=== PATIENT | female | born 2005 | race Caucasian/White ===

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

== ENCOUNTER 2024-01-21 17:43 | Emergency (ER) | payer OTHER, SELFPAY ==
[2024-01-21 17:53] VITALS: BP 134/91; PULSE 102; RESP 18; TEMP 37; O2SAT 98
--- NOTE | 2024-01-21 18:43 | ED.URI ---
HPI - URI/Sore Throat General Chief Complaint: Upper Respiratory Infection Stated Complaint: sore throat / SOB / Headache Time Seen by Provider: 01/21/24 18:33 Source: patient and RN notes reviewed Mode of arrival: ambulatory Limitations: no limitations History of Present Illness HPI Narrative: Patient presents today with a 2 day history of sore throat, cough, headache, shortness of breath with exertion. Denies fever. States she has been also exposed to COVID-19. History of asthma. She has been using her albuterol inhaler up to 3 times a day, which does provide some relief. She has also been using Sudafed which has not been helping. Related Data Home Medications Medication Instructions Recorded Confirmed buspirone 10 mg tablet mg 01/21/24 dextroamphetamine-amphetamine ER PO 01/21/24 10 mg 24hr capsule,extend release ferrous sulfate 324 mg (65 mg mg PO 01/21/24 iron) tablet,delayed release venlafaxine 75 mg capsule,extended 150 mg PO 01/21/24 release 24 hr Allergies Allergy/AdvReac Type Severity Reaction Status Date / Time No Known Allergies Allergy Verified 01/21/24 18:10 Review of Systems Review of Systems: CONSTITUTIONAL: Denies body aches, fever, chills, or sweats. EYES: Denies visual changes, redness, or discharge. ENT: Denies rhinorrhea, congestion, or otalgia.+ sore throat CARDIOVASCULAR: Denies chest pain, palpitations, or edema. RESPIRATORY: + cough, shortness of breath GASTROINTESTINAL: Denies abdominal pain, nausea, vomiting, or diarrhea. GENITOURINARY: Denies dysuria or hematuria. SKIN: Denies rash, itching, or wounds. MUSCULOSKELETAL: Denies back pain, joint pain, or myalgia. NEUROLOGIC: Denies headache, numbness, tingling, or weakness. PSYCH: Denies depression or anxiety. [facility] Past Medical History Medical History Asthma Surgical History Surgical History Marsing teeth extracted Social History Social History Smoking status: Never smoker Alcohol intake: never Substance use: never Lack of Transportation: No Lack of Food: Never True Current Housing: I Have Housing Concerned About Future Housing: No Difficulty Paying Gas/Electric Bills: No Difficulty Paying for Meds: No Currently Unemployed: No Education: High School Diploma/GED Difficulty w/ Childcare or Family Care: No Living arrangements: with family Occupation/Education: student Gender identity (if verbalized by the patient): Female Sexual Orientation (if Verbalized by the Patient): Straight or Heterosexual Spiritual care concerns: No Comments At time of signature, I have reviewed and agree with nursing past medical, surgical, social and family history unless otherwise noted. Please see nursing chart for further information. There is no relevant family history pertinent to the presenting complaint Exam Narrative: GENERAL: Well-appearing, well-nourished, and in no acute distress. HEAD: Normocephalic, atraumatic. EYES: EOMI. No redness or drainage. Conjunctivae normal. ENT: Mucous membranes pink and moist. Nares clear. No rhinorrhea. TMs normal bilaterally. Throat normal. Uvula midline. NECK: Normal AROM. Supple. No lymphadenopathy. CHEST: No respiratory distress. Clear to auscultation. HEART: Regular rate and rhythm. No murmur appreciated. EXTREMITIES: Normal range of motion. No edema. SKIN: Warm, dry, no rash. Capillary refill normal. Normal skin turgor. NEURO: No focal deficits. Alert and oriented x3. Gait steady. PSYCH: Normal affect. No signs of depression or anxiety. Course Course Level of Care: Express Care Visit Vital Signs Vital signs: Vital Signs Temperature 98.6 F 01/21/24 17:53 Pulse Rate 102 H 01/21/24 17:53 Respiratory Rate 18 01/21/24 17:53 Blood Pressu
[2024-01-21 18:59] LABS: EDCOVIDSCREEN Negative (Negative); EDINFLUASCREEN Negative (Negative); EDINFLUBSCREEN Negative (Negative)
[2024-01-21 18:59] LABS: EDSTREPNEGPOS1 Negative (Negative)
== END 2024-01-21 18:53 | disposition home or self-care (01) ==
PROVIDERS: Emergency Provider Nurse Practitioner; PCP Student in an Organized Health Care Education/Training Program
DX: J06.9 Acute upper respiratory infection, unspecified (principal); J45.901 Unspecified asthma with (acute) exacerbation; Z20.822 Contact with and (suspected) exposure to COVID-19
CPT/HCPCS: 87081; 87426; 87804; 87880; 99213; G0463

== ENCOUNTER 2024-05-24 13:48 | Emergency (ER) | payer OTHER, SELFPAY ==
--- OUTSIDE RECORDS SUMMARY | 2024-05-24 13:50 | XMS_ITS | Clinical Summary ---
Author Organization [facility] Address [address] [place] [address]. [place] [address] [place] [address] Care Team Providers Care Leadership Coach Name Role Phone Sherrell Myles MD Primary Care Provider + Allergies No known active allergies Medications ELURYNG 0.12-0.015 MG/24HR RING INSERT ONE RING VAGINALLY AND LEAVE IN PLACE FOR 3 CONSECUTIVE WEEKS, THEN REMOVE FOR 1 WEEK. INSERT NEW RING 7 DAYS AFTER THE LAST WAS REMOVED 3 Active ferrous sulfate EC 324 (65 Fe) MG tabletIndications :Low serum iron Take one tablet 4 times per week 90 tablet 1 4 Active clindamycin (CLEOCIN T) 1 % gelIndications:Ac ne, unspecified acne type Apply topically 2 (two) times daily. 30 g 4 Active busPIRone (BUSPAR) 10 MG tabletIndications :Anxiety Take 1 tablet (10 mg total) by mouth 2 (two) times daily. 180 tablet 4 025 Active albuterol sulfate HFA 108 (90 Base) MCG/ACT inhalerIndication s:Mild intermittent asthma without complication (HHS/HCC) Inhale 2 puffs into the lungs every 4 (four) hours as needed for Wheezing. 18 g 4 Active amphetamine-dextr oamphetamine XR (ADDERALL XR) 10 MG 24 hr capsuleIndication s:Attention deficit hyperactivity disorder (ADHD), combined type Take 1 capsule (10 mg total) by mouth every morning. 30 capsule 4 Active venlafaxine XR (EFFEXOR-XR) 75 MG 24 hr capsuleIndication s:Anxiety,Moderat e major depression ([facility]) Take 1 capsule (75 mg total) by mouth daily. 90 capsule 1 4 025 Active Active Problems Problem Noted Date Diagnosed Date Irritable bowel syndrome with constipation 01/13 Anemia 07/25/2022 Attention deficit hyperactiv ity disorder (ADHD), combined type 05/21/2022 Overview (03/10/2024): Taking adderall. Struggling with focus and time management. Has been taking medication for about 6 months. During last visit increased adderall but noted tachycardia after starting it. She is wondering if she can try some supplements to help manage attention. Assessment & Plan (03/10/2024 9:11 AM TAILOR MEN'S READY TO WEAR): Chronic. Not currently appropriately managed and she is having side effects from medication. Will reduce her Adderall back to 10 mg daily. She is interested in trying some supplements we discussed how best to approach this. Encouraged her to monitor screen time closely as well. Assessment & Plan (01/14/2024 10:49 AM CDT): Not controlled. Will trial Adderall extended release 20 mg daily. UDS up-to-date August 2023. I indicated I preferred she not combine with marijuana. She is agreeable to this. Contract signed. Anxiety 05/21/2022 Moderate episode of recurren t major depressive disorder ([facility]) 05/21/2022 Overview (03/10/2024): Patient reports she has been taking venlafaxine 150 mg since December when her dose was reduced. She continues to note well manage symptoms. She would like to reduce further. Assessment & Plan (03/10/2024 9:12 AM TAILOR MEN'S READY TO WEAR): Chronic and controlled. Trial reduction in venlafaxine to 75 mg daily. Assessment & Plan (01/14/2024 10:50 AM CDT): Trial reduction in venlafaxine. Recommend reducing to 150 mg daily. Acne vulgaris 07/06/2017 Overview (06/08/2022): Onset age 8; minimal use of clindamycin and tretinoin (<6g/mo) and MCN x3mo 07/06/17 moderate-severe with scarring; Rx Sailaja, tretinoin 0.05% cr, clinda lotion, BPO wash; consider isotretinoin Asthma ([facility]) 03/13/2009 Overview (01/14/2024): Reports intermittent wheezing. Worse when ill or in the winter. Assessment & Plan (01/14/2024 10:49 AM CDT): Mild intermittent. Continue albuterol as needed. Encounters Date Type Department Care Team Description 03/14/2024 10:00 AM TAILOR MEN'S READY TO WEAR Allied Health/Nurse Visit [address] [place] [id number] Sherrell Myles MD Imm/Inj (Patient presents for her 2nd HPV vaccine) 03/14/2024 Travel 03/10/2024 8:50 AM TA[employer] MEN'S [employer] TO WE[employer] Office Visit [address] [place] [id number] Sherrell Myles MD Tachycardia 03/10/2024 Travel from Last 3 Months Immunizations Name Administration Dates Next Due [id number] (Pediarix) 04/27/2004,02/26/2004 DTaP-IPV (Kinrix) 11/05/2008 Dtap (Generic) 02/06/2005,2003 Fluzone 6 Months+ Quad (0.5 mL Prefilled Syringe) 01/24/2023,04/17/2022 HPV GARDASIL 9-VALENT 03/14/2024,01/14/2024 Hepatitis A (Havrix [address]) 10/29/2006, 006 Hepatitis B Pediatric 2003,2003 Hib (Generic) 02/06/2005, 4,02/26/2004,04/2003 Influenza (Generic) 03/06/2011, 0,02/10/2008,12/2006,04/06/2006 Influenza Adult (Generic) 03/17/2020,,03/01/2018,01/28,03/31/2016,04/27/2015,02/14/20 14,02/14/2013 MENINGOCOCCAL A C Y&W-135 oligosaccharide (MENVEO) 11/13/2014 MMR (MMRII) 11/25/2007,11/14/2004 Meningcoccal Group B (Bexser o)(aka Meningitis) 12/22/2020,11/09/2020 Meningococcal (Menactra) 03/17/2020 Pneumococcal (Pneumovax 23) 03/14/2023 Pneumococcal (Prevnar 7) 02/06/2005,03/31,02/26/2004,04/2003 Polio IPV (Ipol) 2003 Tdap (Adacel) 01/14/2024 Tdap (Generic) 12/12/2013 Varicella (Varivax) 11/25/2007,11/14/2004 Family History Medical History Relation Comments No Known Problems Father Mental Health Maternal Grandmother Depression Mother Mental Health Mother Miscarriages / Stillbirths Mother Cancer Paternal Aunt Alcohol Abuse Paternal Grandfather Stroke Paternal Grandfather Alcohol Abuse Paternal Grandmother Drug Abuse Paternal Uncle Mental Health Sister Relation Status Comments Father Alive Maternal Grandmother Mother Alive Paternal Aunt Paternal Grandfather Paternal Grandmother Paternal Uncle Sister Social History Tobacco Use Types Packs/Day Years Used Date Smoking Tobacco: Never Passive Smoke Exposure: Never Smokeless Tobacco: Never Tobacco Cessation:Counseling Given: No Comments:Counseled by Dr Dacosta Alcohol Use Standard Drinks/Week Comments Never 0 (1 standard drink = 0.6 oz pur e alcohol) AUDIT-C Answer Date Recorded Q1: How often do you have a drink containing alcohol? Never 09/12/2023 Q2: How many drinks containi ng alcohol do you have on a typical day when you are drinking? Patient does not drink Q3: How often do you have si x or more drinks on one occasion? Never 09/12/2023 PHQ-2 Answer Date Recorded Patient Health Questionnaire-2 Score 4 01/14/2024 Comments No Sex and Gender Information Value Date Recorded Sex Assigned at Not on file Legal Sex Female 4:15 PM [employer] Gender Identity Female 03/14/2022 5:57 AM [employer] WE[employer] Sexual Orientation Straight 03/14/2022 5: 57 AM [employer] WEAR Last Filed Vital Signs Vital Sign Reading Time Taken Comments Blood Pressure 124/86 03/10/2024 9:10 AM [employer] Pulse 86 03/10/2024 9:10 AM [employer] Temperature 37.1 ??C (98.8 ??F) 03/10/2024 9:10 AM CS T Respiratory Rate 16 03/10/2024 9:10 AM [employer] WE[employer] Oxygen Saturation 98% 03/10/2024 9:10 AM [employer] WE[employer] Inhaled Oxygen Concentration - - Weight 75.3 kg (166 lb) 03/10/2024 9:10 AM [employer] Height 160 cm (5' 3 ) 03/10/2024 9:10 AM [employer] WE[employer] Body Mass Index 29.41 03/10/2024 9:10 AM [employer] WE[employer] Plan of Treatment Upcoming Encounters Date Type Department Care Team (Late st Contact Info) Description 07/14/2024 8:10 AM CDT Office Visit [facility] Family Medicine - [place] [address] [facility] [address] [place] [address] [id number] Sherrell Myles MD [address] [place] [id number] Health Maintenance Due Date Last Done Comments Chlamydia Screening Females ages 16-24 2019 COVID-19 Vaccine ( season) 2023 12/15/2020, 11/24/2020 Influenza Adult (#1) 2024 01/24/2023, 04/17/2022, 03/17/2020, Additional history exists Pneumococcal Vaccine: Pediatrics (0 to 5 Years) and At-Risk Patients (6 to 64 Years) (2 of 2 - PCV) 03/14/2024 03/14/2023, 02/06/2005, 04/27/2004, Additional history exists HPV Vaccines (3 - 3-dose series) 07/13/2024 03/14/2024, 01/14/2024 Annual Physical 09/11/2024 09/12/2023, 05/18/2022 PHQ-2 (Physician [place]) 01/13/2025 01/14/2024 DTaP, Tdap and Td Vaccines (8 - Td or Tdap) 01/13/2034 01/14/2024, 12/12/2013, 11/05/2008, Additional history exists Hepatitis B Vaccines Completed 04/27/2004, 02/26/2004, 2003, Additional history exists Meningococcal Vaccine Completed 03/17/2020, 015 Meningococcal B Vaccine Completed 12/22/2020, 11/09 Hepatitis C Completed 09/12/2023 RSV Immunizations Under 20 Months Aged Out No longer eligible based on patient's age to complete this topic Procedures Procedure Name Priority Date/Time Associated Diagnosis Comments HEPATITIS C ANTIBODY Routine 09/12/2023 3:01 PM CDT Encounter for hepatitis C screening test for low risk patient from Last 3 Months or Most Recently Relevant to Health Maintenance Results * HEPATITIS C ANTIBODY ([facility] ONLY) (09/12/2023 3:01 PM CDT) HEPATITIS C AB NON-REACTI VE NON-REACT ANAIS 09/12/2023 10:00 PM CDT [facility] Comment: ANTIBODIES TO HCV NOT DETECTED. DOES NOT EXCLUDE THE POSSIBILITY OF EXPOSURE TO HCV. 09/12/2023 3:01 PM CDT Carmen Dacosta MD LABORATORY Final Result [facility] [address] [place] [address], [id number] from Last 3 Months or Most Recently Relevant to Health Maintenance Insurance BE Care Teams Leadership Coach Relationship Specialty Start Date End Date Sherrell Myles MD [address] [facility] [place] [address] PCP - General FAMILY PRACTICE 01/11/24
--- OUTSIDE RECORDS SUMMARY | 2024-05-24 13:50 | XMS_ITS | Encounter Summary ---
Author Organization [facility] Address [address] [place] [address]. [place] [address] [place] [address] Care Team Providers Care Knockdown Worker Name Role Phone Carmen Dacosta MD Primary Care Provider [phone] Sherrell Myles MD Primary Care Provider + Encounter Details Date Type Department Care Team (Late st Contact Info) Description 03/19/2023 MyChart Message Enc [facility] Multispecialty Care - [place] [address] [address] [place], [place] [phone] Carmen Dacosta MD [address] [place] [address] [address] [place], [place] [id number] Adderall Social History Tobacco Use Types Packs/Day Years Used Date Smoking Tobacco: Never Passive Smoke Exposure: Never Smokeless Tobacco: Never Comments:Counseled by Dr Francoise benson Alcohol Use Standard Drinks/Week Comments Never 0 (1 standard drink = 0.6 oz pur e alcohol) PHQ-2 Answer Date Recorded Patient Health Questionnaire-2 Score 2 03/14/2023 Comments No Sex and Gender Information Value Date Recorded Sex Assigned at Not on file Legal Sex Female 4:15 PM FELLING BUCKING SUPERVISOR Gender Identity Female 03/14/2022 5:57 AM FELLING BUCKING SUPERVISOR Sexual Orientation Straight 03/14/2022 5: 57 AM FELLING BUCKING SUPERVISOR documented as of this encounter Plan of Treatment Upcoming Encounters Date Type Department Care Team (Late st Contact Info) Description 07/14/2024 8:10 AM CDT Office Visit [facility] Family Medicine - [place] [address] [place] [address] Sherrell yMles MD [address] [place], [place] [phone] documented as of this encounter Visit Diagnoses Not on filedocumented in this encounter Additional Health Concerns Assessment Noted Time PHQ-9 Depression Total Score: 9 03/14/20 2:20 PM FELLING BUCKING SUPERVISOR documented as of this encounter Care Teams Knockdown Worker Relationship Specialty Start Date End Date Carmen Dacosta MD [address] [facility] [address] [place] [address] PCP - General INTERNAL MEDICINE 10/02/22 01/10/24 Sherrell Myles MD [address] [facility] [address] [place], [place] [address] PCP - General FAMILY PRACTICE 01/11/24 documented as of this encounter
--- OUTSIDE RECORDS SUMMARY | 2024-05-24 13:50 | XMS_ITS | Encounter Summary ---
Author Organization [facility] Address [address] [place] [address]. [place] [address] [place] [address] Care Team Providers Care Vmware Architect Name Role Phone Cirilo Kurtz MD Primary Care Pr ovider [facility] Carmen Dacosta MD Primary Care Provider [phone] Sherrell Myles MD Primary Care Provider + Encounter Details Date Type Department Care Team (Late st Contact Info) Description 03/28/2022 MyChart Message Enc [facility] Medical [facility] Multispecialty Care - [address] [place] [address] Florence Moscoso NP [place] Social History Tobacco Use Types Packs/Day Years Used Date Smoking Tobacco: Never Smokeless Tobacco: Never Alcohol Use Standard Drinks/Week Comments Never 0 (1 standard drink = 0.6 oz pur e alcohol) PHQ-2 Answer Date Recorded PHQ-2 Score - If the patient scores above 3, please move on to questions 3-9 1 03/15/2022 Comments No Sex and Gender Information Value Date Recorded Sex Assigned at Not on file Legal Sex Female 4:15 PM INVESTMENT PROFESSIONAL Gender Identity Female 03/14/2022 5:57 AM INVESTMENT PROFESSIONAL Sexual Orientation Straight 03/14/2022 5: 57 AM INVESTMENT PROFESSIONAL COVID-19 Exposure Response Date Recorded In the last 10 days, have yo u been in contact with someone who was confirmed or suspected to have Coronavirus/COVID-19? No / Unsure 03/24/2022 10:48 AM INVESTMENT PROFESSIONAL documented as of this encounter Plan of Treatment Upcoming Encounters Date Type Department Care Team (Late st Contact Info) Description 07/14/2024 8:10 AM CDT Office Visit [facility] Family Medicine - [place] [address] [place] [address] Sherrell Myles MD [address] [place] [address] documented as of this encounter Visit Diagnoses Not on filedocumented in this encounter Care Teams Vmware Architect Relationship Specialty Start Date End Date Cirilo Kurtz MD PCP - General FAMILY PRACTICE 03/15/22 10/01/22 Carmen Dacosta MD [address] [facility] [address] [place] [address] PCP - General INTERNAL MEDICINE 10/02/22 01/10/24 Sherrell Myles MD [address] [facility] [address] [place] [address] PCP - General FAMILY PRACTICE 01/11/24 documented as of this encounter
--- OUTSIDE RECORDS SUMMARY | 2024-05-24 13:50 | XMS_ITS | Encounter Summary ---
Author Organization [facility] Address [address] [place] [address]. [place] [address] [place] [address] Care Team Providers Care Director Of Tax Services Name Role Phone Carmen Dacosta MD Primary Care Provider [phone] Sherrell Myles MD Primary Care Provider + Encounter Details Date Type Department Care Team (Latest Contact Info) Description 02/26/2023 TellmeGent Message Enc [facility] Multispecialty Care - [place] [address] [address] [place] [address] Carmen Dacosta MD [address] [place] [address] [address] [place] [address] EEG and Heart Monitor Social History Tobacco Use Types Packs/Day Years Used Date Smoking Tobacco: Never Passive Smoke Exposure: Never Smokeless Tobacco: Never Comments:Counseled by Dr Francoise benson Alcohol Use Standard Drinks/Week Comments Never 0 (1 standard drink = 0.6 oz pur e alcohol) PHQ-2 Answer Date Recorded Patient Health Questionnaire-2 Score 1 02/20/2023 Comments No Sex and Gender Information Value Date Recorded Sex Assigned at Not on file Legal Sex Female 4:15 PM PHARMACY ORDER ENTRY TECHNICIAN Gender Identity Female 03/14/2022 5:57 AM PHARMACY ORDER ENTRY TECHNICIAN Sexual Orientation Straight 03/14/2022 5: 57 AM PHARMACY ORDER ENTRY TECHNICIAN documented as of this encounter Plan of Treatment Upcoming Encounters Date Type Department Care Team (Late st Contact Info) Description 07/14/2024 8:10 AM CDT Office Visit [facility] Family Medicine - [place] [address] [place] [address] Sherrell Myles MD [address] [place], [place] [id number] documented as of this encounter Visit Diagnoses Not on filedocumented in this encounter Additional Health Concerns Assessment Noted Time PHQ-9 Depression Total Score: 9 01/25/20 4:50 PM CDT documented as of this encounter Care Teams Director Of Tax Services Relationship Specialty Start Date End Date Carmen Dcaosta MD [address] [facility] [address] [place] [address] PCP - General INTERNAL MEDICINE 10/02/22 01/10/24 Sherrell Myles MD [address] [facility] [address] [place], [place] [address] PCP - General FAMILY PRACTICE 01/11/24 documented as of this encounter
--- OUTSIDE RECORDS SUMMARY | 2024-05-24 13:50 | XMS_ITS | Referral Summary ---
Author Organization [facility] Address [address] [place] [address] Care Team Providers Care Order Booker Name Role Phone Kermit Zavala MD Primary Care Provider Encounters Date Type Department Care Team Description 03/20/[address] [facility] [address] [facility] [address] [place] [phone] Laurie López RN 03/20/[address] [facility] [address] [facility] [address] [place] [phone] Laurie López RN 03/17/2024 9:35 AM NURSE EPIDEMIOLOGIST Lab [facility] [address] [place] [address] [address] [place] [address] Seasonal allergic rhinitis due to pollen 03/17/2024 8:00 AM NURSE EPIDEMIOLOGIST Office Visit [facility] [address] [facility] [address] [place] [address] Cynthia Mars MD Seasonal allergic rhinitis due to pollen (Primary Dx); Urticaria; Mild intermittent asthma without complication from Last 3 Months Allergies No known active allergies Medications tretinoin (RETIN-A) 0.05 % cream APPLY PEA SIZE AMOUNT TO FACE EVERY OTHER NIGHT FOR 1 TO 2 WEEKS AND THEN EVERY NIGHT AT BEDTIME 2 7 Active minocycline (MINOCIN,DYNACIN ) 100 mg capsule 0 7 Active clindamycin (CLEOCIN T) 1 % external solution Apply topically 2 (two) times a day. 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 INSERT NEW RING 7 DAYS AFTER THE LAST WAS REMOVED . APPOINTMENT REQUIRED FOR FUTURE REFILLS Active ferrous sulfate ER 324 mg (65 mg iron) EC tablet TAKE ONE TABLET BY MOUTH 4 TIMES A WEEK Active venlafaxine XR (EFFEXOR-XR) 75 mg 24 hr capsule Take 1 capsule (75 mg total) by mouth daily 4 09/07/19 25 Active budesonide-formo teroL (Symbicort) 160-4.5 mcg/actuation inhalerIndicatio ns:Mild intermittent asthma without complication Inhale 2 puffs 2 (two) times a day Rinse mouth with water after use. Do not swallow. Use with Spacer. Up to 12 doses in 24 hours. 1 each 4 Active inhalational spacing device (Aerochamber Plus Z Stat) spacerIndication s:Mild intermittent asthma without complication 1 Inhalation as needed (with inhaler) 1 each 3 4 Active mometasone (NASONEX) 50 mcg/actuation nasal sprayIndications :Allergic Rhinitis Administer 2 sprays into each nostril 2 (two) times a day 17 g 11 4 03/17/20 25 Active cetirizine (ZyrTEC) 10 mg tabletIndication s:Urticaria,Seas onal allergic rhinitis due to pollen Take 1 tablet (10 mg total) by mouth daily 90 tablet 3 4 Active Active Problems Problem Noted Date Diagnosed Date Acute streptococcal pharyngitis 05/24/2016 Overview (08/10/2016): Strep throat Acute suppurative otitis med ia without spontaneous rupture of ear drum 12/24/2015 Overview (08/10/2016): Acute suppurative otitis media of left ear without spontaneous rupture of tympanic membrane, recurrence not specified Social History Tobacco Use Types Packs/Day Years Used Date Smoking Tobacco: Never Smokeless Tobacco: Never Alcohol Use Standard Drinks/Week Comments No 0 (1 standard drink = 0.6 oz pur e alcohol) Comments Unknown Sex and Gender Information Value Date Recorded Sex Assigned at Not on file Legal Sex Female 5:52 AM NURSE EPIDEMIOLOGIST Gender Identity Not on file Sexual Orientation Not on file Last Filed Vital Signs Vital Sign Reading Time Taken Comments Blood Pressure 119/81 03/17/2024 8:13 AM NURSE EPIDEMIOLOGIST Pulse 86 03/17/2024 8:13 AM NURSE EPIDEMIOLOGIST Temperature 36.3 ??C (97.4 ??F) 03/17/2024 8:13 AM CS T Respiratory Rate 16 07/02/2017 7:16 PM NURSE EPIDEMIOLOGIST Oxygen Saturation 98% 03/17/2024 8:13 AM NURSE EPIDEMIOLOGIST Inhaled Oxygen Concentration - - Weight 74.8 kg (165 lb) 03/17/2024 8:13 AM NURSE EPIDEMIOLOGIST Height 160 cm (5' 3 ) 03/17/2024 8:13 AM NURSE EPIDEMIOLOGIST Body Mass Index 29.23 03/17/2024 8:13 AM NURSE EPIDEMIOLOGIST Plan of Treatment Not on file Procedures Procedure Name Priority Date/Time Associated Diagnosis Comments ALLERGEN RAT MIX (ANIMAL) IGE Routine 03/17/2024 9:32 AM NURSE EPIDEMIOLOGIST Seasonal allergic rhinitis due to pollen ALLERGEN MOUSE MIX (ANIMAL) IGE Routine 03/17/2024 9:32 AM NURSE EPIDEMIOLOGIST Seasonal allergic rhinitis due to pollen ALLERGEN EPITHELIA/DANDER DOG (ANIMAL) IGE Routine 03/17/2024 9:32 AM NURSE EPIDEMIOLOGIST Seasonal allergic rhinitis due to pollen ALLERGEN DERMATOPHAGOIDES PTERONYSSINUS (INSECT) IGE Routine 03/17/2024 9:32 AM NURSE EPIDEMIOLOGIST Seasonal allergic rhinitis due to pollen ALLERGEN DERMATOPHAGOIDES FARINAE (INSECT) IGE Routine 03/17/2024 9:32 AM NURSE EPIDEMIOLOGIST Seasonal allergic rhinitis due to pollen ALLERGEN COCKROACH ARMENIAN (INSECT) IGE Routine 03/17/2024 9:32 AM NURSE EPIDEMIOLOGIST Seasonal allergic rhinitis due to pollen ALLERGEN EPITHELIA/DANDER CAT (ANIMAL) IGE Routine 03/17/2024 9:32 AM NURSE EPIDEMIOLOGIST Seasonal allergic rhinitis due to pollen ALLERGEN PENICILLIUM CHRYSOGENUM (MOLD) IGE Routine 03/17/2024 9:32 AM NURSE EPIDEMIOLOGIST Seasonal allergic rhinitis due to pollen ALLERGEN CLADOSPORIUM HERBARUM (MOLD) IGE Routine 03/17/2024 9:32 AM NURSE EPIDEMIOLOGIST Seasonal allergic rhinitis due to pollen ALLERGEN ASPERGILLUS FUMIGATUS (MOLD) IGE Routine 03/17/2024 9:32 AM NURSE EPIDEMIOLOGIST Seasonal allergic rhinitis due to pollen ALLERGEN ALTERNARIA TENUIS (MOLD) IGE Routine 03/17/2024 9:32 AM NURSE EPIDEMIOLOGIST Seasonal allergic rhinitis due to pollen ALLERGEN NETTLE (WEED) IGE Routine 03/17/2024 9:32 AM NURSE EPIDEMIOLOGIST Seasonal allergic rhinitis due to pollen ALLERGEN RAGWEED SHORT/COMMON (WEED) IGE Routine 03/17/2024 9:32 AM NURSE EPIDEMIOLOGIST Seasonal allergic rhinitis due to pollen ALLERGEN PIGWEED ROUGH (WEED) IGE Routine 03/17/2024 9:32 AM NURSE EPIDEMIOLOGIST Seasonal allergic rhinitis due to pollen ALLERGEN PARRISH'S QUARTER (WEED) IGE Routine 03/17/2024 9:32 AM NURSE EPIDEMIOLOGIST Seasonal allergic rhinitis due to pollen ALLERGEN PLANTAIN HUNGARIAN (WEED) IGE Routine 03/17/2024 9:32 AM NURSE EPIDEMIOLOGIST Seasonal allergic rhinitis due to pollen ALLERGEN HANY GRASS (GRASS) IGE Routine 03/17/2024 9:32 AM NURSE EPIDEMIOLOGIST Seasonal allergic rhinitis due to pollen ALLERGEN CLIFTON GRASS (GRASS) IGE Routine 03/17/2024 9:32 AM NURSE EPIDEMIOLOGIST Seasonal allergic rhinitis due to pollen ALLERGEN BERMUDA GRASS (GRASS) IGE Routine 03/17/2024 9:32 AM NURSE EPIDEMIOLOGIST Seasonal allergic rhinitis due to pollen ALLERGEN WALNUT (TREE) IGE Routine 03/17/2024 9:32 AM NURSE EPIDEMIOLOGIST Seasonal allergic rhinitis due to pollen ALLERGEN SYCAMORE ARMENIAN (TREE) IGE Routine 03/17/2024 9:32 AM NURSE EPIDEMIOLOGIST Seasonal allergic rhinitis due to pollen ALLERGEN OAK RED (TREE) IGE Routine 03/17/2024 9:32 AM NURSE EPIDEMIOLOGIST Seasonal allergic rhinitis due to pollen ALLERGEN MULBERRY (TREE) IGE Routine 03/17/2024 9:32 AM NURSE EPIDEMIOLOGIST Seasonal allergic rhinitis due to pollen ALLERGEN MOUNTAIN JUNIPER (TREE) IGE Routine 03/17/2024 9:32 AM NURSE EPIDEMIOLOGIST Seasonal allergic rhinitis due to pollen ALLERGEN MAPLE/BOX ELDER (TREE) IGE Routine 03/17/2024 9:32 AM NURSE EPIDEMIOLOGIST Seasonal allergic rhinitis due to pollen ALLERGEN ELM (TREE) IGE Routine 03/17/20 9:32 AM NURSE EPIDEMIOLOGIST Seasonal allergic rhinitis due to pollen ALLERGEN BIRCH COMMON SILVER (TREE) IGE Routine 03/17/2024 9:32 AM NURSE EPIDEMIOLOGIST Seasonal allergic rhinitis due to pollen from Last 3 Months Results * Allergen Rat mix (animal) IgE (03/17/2024 9:32 AM NURSE EPIDEMIOLOGIST) Rat mix IgE <0.10 0.00 - 0.34 kUnits/L Blood 03/17/2024 9:32 AM NURSE EPIDEMIOLOGIST 03/17/2024 11:32 AM NURSE EPIDEMIOLOGIST Cynthia Mars MD LAB BLOOD ORDERABLES Fin al Result Performing Organization Address [facility] de Phone Number [facility] [place] [address] * Allergen Mouse mix (animal) IgE (03/17/2024 9:32 AM NURSE EPIDEMIOLOGIST) Mouse mix IgE <0.10 0.00 - 0.34 kUnits/L Blood 03/17/2024 9:32 AM NURSE EPIDEMIOLOGIST 03/17/2024 11:32 AM NURSE EPIDEMIOLOGIST Result [facility] Cynthia Mars MD LAB BLOOD ORDERABLES Fin al Result Performing Organization Address [facility] de Phone Number [facility] Department [place] [address] * Allergen Penicillium chrysogenum (mold) IgE (03/17/2024 9:32 AM NURSE EPIDEMIOLOGIST) Penicillium chrysogenum IgE <0.10 0.00 - 0.34 kUnits/L Blood 03/17/2024 9:32 AM NURSE EPIDEMIOLOGIST 03/17/2024 11:32 AM NURSE EPIDEMIOLOGIST Result [facility] Cynthia Mars MD LAB BLOOD ORDERABLES Fin al Result Performing Organization Address [facility] Co de Phone Number [facility] [place] [address] * Allergen Bee Branch (tree) IgE (03/17/2024 9:32 AM NURSE EPIDEMIOLOGIST) Bee Branch IgE <0.10 0.00 - 0.34 kUnits/L Blood 03/17/2024 9:32 AM NURSE EPIDEMIOLOGIST 03/17/2024 11:32 AM NURSE EPIDEMIOLOGIST Cynthia Mars MD LAB BLOOD ORDERABLES Fin al Result Performing Organization Address [facility] de Phone Number [facility] [place] [address] * Allergen Mountain juniper (tree) IgE (03/17/2024 9:32 AM NURSE EPIDEMIOLOGIST) Mountain juniper IgE <0.10 0.00 - 0.34 kUnits/L Blood 03/17/2024 9:32 AM NURSE EPIDEMIOLOGIST 03/17/2024 11:32 AM NURSE EPIDEMIOLOGIST Cynthia Mars MD LAB BLOOD ORDERABLES Fin al Result Performing Organization Address [facility] Phone Number [facility] [place] [address] * Allergen Bermuda grass (grass) IgE (03/17/2024 9:32 AM NURSE EPIDEMIOLOGIST) Bermuda grass IgE <0.10 0.00 - 0.34 kUnits/L Blood 03/17/2024 9:32 AM NURSE EPIDEMIOLOGIST 03/17/2024 11:32 AM NURSE EPIDEMIOLOGIST Cynthia Mars MD LAB BLOOD ORDERABLES Fin al Result Performing Organization Address [facility] de Phone Number [facility] [place] [address] * Allergen Plantain thai (weed) IgE (03/17/2024 9:32 AM NURSE EPIDEMIOLOGIST) Plantain thai IgE <0.10 0.00 - 0.34 kUnits/L Blood 03/17/2024 9:32 AM NURSE EPIDEMIOLOGIST 03/17/2024 11:32 AM NURSE EPIDEMIOLOGIST Cynthia Mars MD LAB BLOOD ORDERABLES Fin al Result Performing Organization Address [facility] Co de Phone Number [facility] [place] [address] * Allergen Elm (tree) IgE (03/17/2024 9:32 AM NURSE EPIDEMIOLOGIST) Elm IgE <0.10 0.00 - 0.34 kUnits/L Blood 03/17/2024 9:32 AM NURSE EPIDEMIOLOGIST 03/17/2024 11:32 AM NURSE EPIDEMIOLOGIST Cynthia Mars MD LAB BLOOD ORDERABLES Fin al Result Performing Organization Address [facility] de Phone Number [facility] [place] [address] * Allergen Cladosporium herbarum (mold) IgE (03/17/2024 9:32 AM NURSE EPIDEMIOLOGIST) Cladosporium herbarum IgE <0.10 0.00 - 0.34 kUnits/L Blood 03/17/2024 9:32 AM NURSE EPIDEMIOLOGIST 03/17/2024 11:32 AM NURSE EPIDEMIOLOGIST Cynthia Mars MD LAB BLOOD ORDERABLES Fin al Result Performing Organization Address [facility] Co de Phone Number [facility] Department [place] [address] * Allergen Birch common silver (tree) IgE (03/17/2024 9:32 AM NURSE EPIDEMIOLOGIST) Birch common silver IgE <0.10 0.00 - 0.34 kUnits/L Blood 03/17/2024 9:32 AM NURSE EPIDEMIOLOGIST 03/17/2024 11:32 AM NURSE EPIDEMIOLOGIST Cynthia Mars MD LAB BLOOD ORDERABLES Fin al Result Performing Organization Address [facility] Co de Phone Number [facility] [place] [address] * (ABNORMAL) Allergen Alternaria tenuis (mold) IgE (03/17/2024 9:32 AM NURSE EPIDEMIOLOGIST) Alternaria tenius IgE 3.02(H) 0.00 - 0.34 kUnits/L Blood 03/17/2024 9:32 AM NURSE EPIDEMIOLOGIST 03/17/2024 11:32 AM NURSE EPIDEMIOLOGIST us Cynthia Mars MD LAB BLOOD ORDERABLES Fin al Result Performing Organization Address [facility] [place] [address] * Allergen Aspergillus fumigatus (mold) IgE (03/17/2024 9:32 AM NURSE EPIDEMIOLOGIST) Aspergillus fumigatus IgE <0.10 0.00 - 0.34 kUnits/L Blood 03/17/2024 9:32 AM NURSE EPIDEMIOLOGIST 03/17/2024 11:32 AM NURSE EPIDEMIOLOGIST Cynthia Mars MD LAB BLOOD ORDERABLES Fin al Result Performing Organization Address [facility] Co de Phone Number [facility] [place] [address] * Allergen Dermatophagoides pteronyssinus (insect) IgE (03/17/2024 9:32 AM NURSE EPIDEMIOLOGIST) Dermatophyton pteronyssinus IgE 0.14 0.00 - 0.34 kUnits/L Blood 03/17/2024 9:32 AM NURSE EPIDEMIOLOGIST 03/17/2024 11:32 AM NURSE EPIDEMIOLOGIST us Cynthia Mars MD LAB BLOOD ORDERABLES Fin al Result [facility] Department [place] [address] * Allergen Dermatophagoides farniae (insect) IgE (03/17/2024 9:32 AM NURSE EPIDEMIOLOGIST) Dermatophyton farinae IgE 0.16 0.00 - 0.34 kUnits/L Blood 03/17/2024 9:32 AM NURSE EPIDEMIOLOGIST 03/17/2024 11:32 AM NURSE EPIDEMIOLOGIST Cynthia Mars MD LAB BLOOD ORDERABLES Fin al Result Performing Organization Address [facility] [place] [address] * Allergen Epithelia/dander dog (animal) IgE (03/17/2024 9:32 AM NURSE EPIDEMIOLOGIST) Dog dander IgE <0.10 0.00 - 0.34 kUnits/L Blood 03/17/2024 9:32 AM NURSE EPIDEMIOLOGIST 03/17/2024 11:32 AM NURSE EPIDEMIOLOGIST Cynthia Mars MD LAB BLOOD ORDERABLES Fin al Result Performing Organization Address [facility] Co de Phone Number [facility] [place] [address] * Allergen Cockroach colombian (insect) IgE (03/17/2024 9:32 AM NURSE EPIDEMIOLOGIST) Cockroach IgE <0.10 0.00 - 0.34 kUnits/L Blood 03/17/2024 9:32 AM NURSE EPIDEMIOLOGIST 03/17/2024 11:32 AM NURSE EPIDEMIOLOGIST Cynthia Mars MD LAB BLOOD ORDERABLES Fin al Result Performing Organization Address [facility]/ZIP Co de Phone Number [facility] Department [place] [address] * Allergen Epithelia/dander cat (animal) IgE (03/17/2024 9:32 AM NURSE EPIDEMIOLOGIST) Cat dander IgE <0.10 0.00 - 0.34 kUnits/L Blood 03/17/2024 9:32 AM NURSE EPIDEMIOLOGIST 03/17/2024 11:32 AM NURSE EPIDEMIOLOGIST Cynthia Mars MD LAB BLOOD ORDERABLES Fin al Result Performing Organization Address [facility] Co de Phone Number [facility] Department [place] [address] * Allergen Ragweed short/common (weed) IgE (03/17/2024 9:32 AM NURSE EPIDEMIOLOGIST) Ragweed common IgE <0.10 0.00 - 0.34 kUnits/L Blood 03/17/2024 9:32 AM NURSE EPIDEMIOLOGIST 03/17/2024 11:32 AM NURSE EPIDEMIOLOGIST Result [facility] Cynthia Mars MD LAB BLOOD ORDERABLES Fin al Result Performing Organization Address [facility] Co de Phone Number [facility] Department [place] [address] * Allergen Pigweed, rough (weed) IgE (03/17/2024 9:32 AM NURSE EPIDEMIOLOGIST) Pigweed rough IgE <0.10 0.00 - 0.34 kUnits/L Blood 03/17/2024 9:32 AM NURSE EPIDEMIOLOGIST 03/17/2024 11:32 AM NURSE EPIDEMIOLOGIST Cynthia Mars MD LAB BLOOD ORDERABLES Fin al Result Performing Organization Address [facility] Co de Phone Number [facility] Department [place] [address] * Allergen Nettle (weed) IgE (03/17/2024 9:32 AM NURSE EPIDEMIOLOGIST) Nettle IgE <0.10 0.00 - 0.34 kUnits/L Blood 03/17/2024 9:32 AM NURSE EPIDEMIOLOGIST 03/17/2024 11:32 AM NURSE EPIDEMIOLOGIST Cynthia Mars MD LAB BLOOD ORDERABLES Fin al Result Performing Organization Address [facility] Co de Phone Number [facility] Department [place] [address] * Allergen Parrish's quarter (weed) IgE (03/17/2024 9:32 AM NURSE EPIDEMIOLOGIST) Parrish's quarters IgE <0.10 0.00 - 0.34 kUnits/L Blood 03/17/2024 9:32 AM NURSE EPIDEMIOLOGIST 03/17/2024 11:32 AM NURSE EPIDEMIOLOGIST Cynthia Mars MD LAB BLOOD ORDERABLES Fin al Result Performing Organization Address [facility] de Phone Number [facility] [place] [address] * Allergen Hany grass (grass) IgE (03/17/2024 9:32 AM NURSE EPIDEMIOLOGIST) Hany grass IgE 0.23 0.00 - 0.34 kUnits/L Blood 03/17/2024 9:32 AM NURSE EPIDEMIOLOGIST 03/17/2024 11:32 AM NURSE EPIDEMIOLOGIST Cynthia Mars MD LAB BLOOD ORDERABLES Fin al Result Performing Organization Address [facility] Co de Phone Number [facility] [place] [address] * Allergen Clifton grass (grass) IgE (03/17/2024 9:32 AM NURSE EPIDEMIOLOGIST) Clifton grass IgE 0.15 0.00 - 0.34 kUnits/L Blood 03/17/2024 9:32 AM NURSE EPIDEMIOLOGIST 03/17/2024 11:32 AM NURSE EPIDEMIOLOGIST Cynthia Mars MD LAB BLOOD ORDERABLES Fin al Result Performing Organization Address [facility] Co de Phone Number [facility] Department [place] [address] * Allergen [place]ulloden (tree) IgE (03/17/2024 9:32 AM NURSE EPIDEMIOLOGIST) [place]ull[place] (tree) IgE <0.10 0.00 - 0.34 kUnits/L Blood 03/17/2024 9:32 AM NURSE EPIDEMIOLOGIST 03/17/2024 11:32 AM NURSE EPIDEMIOLOGIST Cynthia Mars MD LAB BLOOD ORDERABLES Fin al Result Performing Organization Address [facility] Co de Phone Number [facility] Department [place] [address] * Allergen Irvington colombian (tree) IgE (03/17/2024 9:32 AM NURSE EPIDEMIOLOGIST) [place] IgE <0.10 0.00 - 0.34 kUnits/L Blood 03/17/2024 9:32 AM NURSE EPIDEMIOLOGIST 03/17/2024 11:32 AM NURSE EPIDEMIOLOGIST Cynthia Mars MD LAB BLOOD ORDERABLES Fin al Result Performing Organization Address [facility] [place] [address] * Allergen Maple/Box elder (tree) IgE (03/17/2024 9:32 AM NURSE EPIDEMIOLOGIST) Maple/box elder IgE <0.10 0.00 - 0.34 kUnits/L Blood 03/17/2024 9:32 AM NURSE EPIDEMIOLOGIST 03/17/2024 11:32 AM NURSE EPIDEMIOLOGIST us Cynthia Mars MD LAB BLOOD ORDERABLES Fin al Result [facility] Department [place] [address] * Allergen [place] red (tree) IgE (03/17/2024 9:32 AM NURSE EPIDEMIOLOGIST) [place] IgE <0.10 0.00 - 0.34 kUnits/L Blood 03/17/2024 9:32 AM NURSE EPIDEMIOLOGIST 03/17/2024 11:32 AM NURSE EPIDEMIOLOGIST Cynthia Mars MD LAB BLOOD ORDERABLES Fin al Result Performing Organization Address [facility] Co de Phone Number [facility] Department [place] [address] from Last 3 Months Insurance * Guarantor: Priti Coburn Account Type Relation to Patient Date of Phone Billing Address Personal/Family Other [address] [place] [id number] [employer] [facility] MEDICAID Care Teams Order Booker Relationship Specialty Start Date End Date Kermit Zavala MD [address] [id number] PCP - General Internal Medicine 11/09/17
--- OUTSIDE RECORDS SUMMARY | 2024-05-24 13:50 | XMS_ITS | Encounter Summary ---
Author Organization [facility] Address [address] [place] [address]. [place] [address] [place] [address] Care Team Providers Care Manager Rn Name Role Phone Carmen Dacosta MD Primary Care Provider [phone] Sherrell Myles MD Primary Care Provider + Encounter Details Date Type Department Care Team (Late st Contact Info) Description 06/22/2023 [facility] Message Enc [facility] Multispecialty Care - [address] [place] [address] [place], [facility] Provider Heart Monitor Social History Tobacco Use Types [...] on file Legal Sex Female 4:15 PM HEAD PUMPER Gender Identity Female 03/14/2022 5:57 AM HEAD PUMPER Sexual Orientation Straight 03/14/2022 5: 57 AM HEAD PUMPER documented as of this encounter Plan of Treatment Upcoming Encounters Date Type Department Care Team (Late st Contact Info) Description 07/14/2024 8:10 AM CDT Office Visit [facility] Family Medicine - [place] [address] [place], [place] [phone] Sherrell Myles MD [address] [facility] [address] [place], [place] [address] documented as of this encounter Visit Diagnoses Not on filedocumented in this encounter Additional Health Concerns Assessment Noted Time PHQ-9 Depression Total Score: 9 03/14/20 23 2:20 PM HEAD PUMPER documented as of this encounter Care Teams Manager Rn Relationship Specialty Start Date End Date Carmen Dacosta MD [address] [facility] [address] [place] [id number] PCP - General INTERNAL MEDICINE 10/02/22 01/10/24 Sherrell Myles MD [address] [facility] [address] [place] [id number] PCP - General FAMILY PRACTICE 01/11/24 documented as of this encounter
--- OUTSIDE RECORDS SUMMARY | 2024-05-24 13:50 | XMS_ITS | Clinical Summary ---
Author Organization [facility] Address [address] [place] [id number] Care Team Providers Care Priming Mixture Carrier Name Role Phone Kermit Zavala MD Primary Care Provider Allergies No known active allergies Medications tretinoin [...] 1 capsule (10 mg total) by mouth customer sales advisor before breakfast 4 Active EluRyng 0.12-0.015 mg/24 [...] 12 doses in 24 hours. 1 each 11 4 Active inhalational spacing device (Aerochamber Plus [...] rupture of tympanic membrane, recurrence not specified Encounters Date Type Department Care Team Description 03/20/[address] [facility] [address] [place] [address] Laurie López RN 03/20/[address] [facility] [address] [place] [address] Laurie López RN 03/17/2024 9:35 AM BOOK JACKET COVER MACHINE OPERATOR Lab [facility] [address] [place] [address] Seasonal allergic rhinitis due to pollen 03/17/2024 8:00 AM BOOK JACKET COVER MACHINE OPERATOR Office Visit [facility] [address] [place] [address] Cynthia Mars MD Seasonal allergic rhinitis due to pollen (Primary Dx); Urticaria; Mild intermittent asthma without complication from Last 3 Months Surgical History Surgery Date Site/Laterality Comments ADENOIDECTOMY Adenoidectomy TONSILLECTOMY Tonsillectomy Family History Medical History Relation Name Comments Heart attack Paternal Grandfather Myocard ial infarction; Relation Name Status Comments Paternal Grandfather Social History Tobacco Use Types Packs/Day Years Used Date Smoking Tobacco: Never Smokeless Tobacco: Never Alcohol Use Standard Drinks/Week Comments No 0 (1 standard drink = 0.6 oz pur e alcohol) Comments Unknown Sex and Gender Information Value Date Recorded Sex Assigned at Not on file Legal Sex Female 5:52 AM BOOK JACKET COVER MACHINE OPERATOR Gender Identity Not on file Sexual Orientation Not on file Obstetrics History Last Filed Vital Signs Vital Sign Reading Time Taken Comments Blood Pressure 119/81 03/17/2024 8:13 AM BOOK JACKET COVER MACHINE OPERATOR Pulse 86 03/17/2024 8:13 AM BOOK JACKET COVER MACHINE OPERATOR Temperature 36.3 ??C (97.4 ??F) 03/17/2024 8:13 AM CS T Respiratory Rate 16 07/02/2017 7:16 PM BOOK JACKET COVER MACHINE OPERATOR Oxygen Saturation 98% 03/17/2024 8:13 AM BOOK JACKET COVER MACHINE OPERATOR Inhaled Oxygen Concentration - - Weight 74.8 kg (165 lb) 03/17/2024 8:13 AM BOOK JACKET COVER MACHINE OPERATOR Height 160 cm (5' 3 ) 03/17/2024 8:13 AM BOOK JACKET COVER MACHINE OPERATOR Body Mass Index 29.23 03/17/2024 8:13 AM BOOK JACKET COVER MACHINE OPERATOR Plan of Treatment Health Maintenance Due Date Last Done Comments Hepatitis C Screening 2003 Depression Screening 07/02/2018 07/02/2017 Regular Well Visit/Exam 18-64 10/26/2021 Covid-19 Vaccine (2023-2 5 season) 2023 12/15/2020, 11/24/2020 Influenza Vaccine (#1) 2023 3, 04/17/2022, 03/17/2020, Additional history exists HPV Vaccines (3 - 3-dose series) 07/13/2024 03/14/20 24, 01/14/2024 DTaP/Tdap/Td Vaccine (8 - Td or Tdap) 01/13/2034 01/14/2024, 12/12/2013, 11/05/2008, Additional history exists Pneumococcal vaccine <65 (2 of 2 - PPSV23 or PCV20) 10/26/2068 03/14/2023, 02/06/2005, 04/27/2004, Additional history exists Varicella Vaccines Completed 11/25/2007, 11/14/2004 Meningococcal Vaccine Completed 03/17/2020, 015 Meningococcal B Vaccine Completed 12/22/2020, 11/09 Procedures Procedure Name Priority Date/Time Associated Diagnosis Comments ALLERGEN RAT MIX (ANIMAL) IGE Routine 03/17/2024 9:32 AM BOOK JACKET COVER MACHINE OPERATOR Seasonal allergic rhinitis due to pollen ALLERGEN MOUSE MIX (ANIMAL) IGE Routine 03/17/2024 9:32 AM BOOK JACKET COVER MACHINE OPERATOR Seasonal allergic rhinitis due to pollen ALLERGEN EPITHELIA/DANDER DOG (ANIMAL) IGE Routine 03/17/2024 9:32 AM BOOK JACKET COVER MACHINE OPERATOR Seasonal allergic rhinitis due to pollen ALLERGEN DERMATOPHAGOIDES PTERONYSSINUS (INSECT) IGE Routine 03/17/2024 9:32 AM BOOK JACKET COVER MACHINE OPERATOR Seasonal allergic rhinitis due to pollen ALLERGEN DERMATOPHAGOIDES FARINAE (INSECT) IGE Routine 03/17/2024 9:32 AM BOOK JACKET COVER MACHINE OPERATOR Seasonal allergic rhinitis due to pollen ALLERGEN COCKROACH BOTSWANAN (INSECT) IGE Routine 03/17/2024 9:32 AM BOOK JACKET COVER MACHINE OPERATOR Seasonal allergic rhinitis due to pollen ALLERGEN EPITHELIA/DANDER CAT (ANIMAL) IGE Routine 03/17/2024 9:32 AM BOOK JACKET COVER MACHINE OPERATOR Seasonal allergic rhinitis due to pollen ALLERGEN PENICILLIUM CHRYSOGENUM (MOLD) IGE Routine 03/17/2024 9:32 AM BOOK JACKET COVER MACHINE OPERATOR Seasonal allergic rhinitis due to pollen ALLERGEN CLADOSPORIUM HERBARUM (MOLD) IGE Routine 03/17/2024 9:32 AM BOOK JACKET COVER MACHINE OPERATOR Seasonal allergic rhinitis due to pollen ALLERGEN ASPERGILLUS FUMIGATUS (MOLD) IGE Routine 03/17/2024 9:32 AM BOOK JACKET COVER MACHINE OPERATOR Seasonal allergic rhinitis due to pollen ALLERGEN ALTERNARIA TENUIS (MOLD) IGE Routine 03/17/2024 9:32 AM BOOK JACKET COVER MACHINE OPERATOR Seasonal allergic rhinitis due to pollen ALLERGEN NETTLE (WEED) IGE Routine 03/17/2024 9:32 AM BOOK JACKET COVER MACHINE OPERATOR Seasonal allergic rhinitis due to pollen ALLERGEN RAGWEED SHORT/COMMON (WEED) IGE Routine 03/17/2024 9:32 AM BOOK JACKET COVER MACHINE OPERATOR Seasonal allergic rhinitis due to pollen ALLERGEN PIGWEED ROUGH (WEED) IGE Routine 03/17/2024 9:32 AM BOOK JACKET COVER MACHINE OPERATOR Seasonal allergic rhinitis due to pollen ALLERGEN PARRISH'S QUARTER (WEED) IGE Routine 03/17/2024 9:32 AM BOOK JACKET COVER MACHINE OPERATOR Seasonal allergic rhinitis due to pollen ALLERGEN PLANTAIN SINHALA (WEED) IGE Routine 03/17/2024 9:32 AM BOOK JACKET COVER MACHINE OPERATOR Seasonal allergic rhinitis due to pollen ALLERGEN HANY GRASS (GRASS) IGE Routine 03/17/2024 9:32 AM BOOK JACKET COVER MACHINE OPERATOR Seasonal allergic rhinitis due to pollen ALLERGEN CLIFTON GRASS (GRASS) IGE Routine 03/17/2024 9:32 AM BOOK JACKET COVER MACHINE OPERATOR Seasonal allergic rhinitis due to pollen ALLERGEN BERMUDA GRASS (GRASS) IGE Routine 03/17/2024 9:32 AM BOOK JACKET COVER MACHINE OPERATOR Seasonal allergic rhinitis due to pollen ALLERGEN WALNUT (TREE) IGE Routine 03/17/2024 9:32 AM BOOK JACKET COVER MACHINE OPERATOR Seasonal allergic rhinitis due to pollen ALLERGEN SYCAMORE BOTSWANAN (TREE) IGE Routine 03/17/2024 9:32 AM BOOK JACKET COVER MACHINE OPERATOR Seasonal allergic rhinitis due to pollen ALLERGEN OAK RED (TREE) IGE Routine 03/17/2024 9:32 AM BOOK JACKET COVER MACHINE OPERATOR Seasonal allergic rhinitis due to pollen ALLERGEN MULBERRY (TREE) IGE Routine 03/17/2024 9:32 AM BOOK JACKET COVER MACHINE OPERATOR Seasonal allergic rhinitis due to pollen ALLERGEN MOUNTAIN JUNIPER (TREE) IGE Routine 03/17/2024 9:32 AM BOOK JACKET COVER MACHINE OPERATOR Seasonal allergic rhinitis due to pollen ALLERGEN MAPLE/BOX ELDER (TREE) IGE Routine 03/17/2024 9:32 AM BOOK JACKET COVER MACHINE OPERATOR Seasonal allergic rhinitis due to pollen ALLERGEN ELM (TREE) IGE Routine 03/17/20 9:32 AM BOOK JACKET COVER MACHINE OPERATOR Seasonal allergic rhinitis due to pollen ALLERGEN BIRCH COMMON SILVER (TREE) IGE Routine 03/17/2024 9:32 AM BOOK JACKET COVER MACHINE OPERATOR Seasonal allergic rhinitis due to pollen from Last 3 Months Results * Allergen Rat mix (animal) IgE (03/17/2024 9:32 AM BOOK JACKET COVER MACHINE OPERATOR) Rat mix IgE <0.10 0.00 - 0.34 kUnits/L Blood 03/17/2024 9:32 AM BOOK JACKET COVER MACHINE OPERATOR 03/17/2024 11:32 AM BOOK JACKET COVER MACHINE OPERATOR us Cynthia Mars MD LAB BLOOD ORDERABLES Fin al Result [facility] Department [place] [address] * Allergen Mouse mix (animal) IgE (03/17/2024 9:32 AM BOOK JACKET COVER MACHINE OPERATOR) Mouse mix IgE <0.10 0.00 - 0.34 kUnits/L Blood 03/17/2024 9:32 AM BOOK JACKET COVER MACHINE OPERATOR 03/17/2024 11:32 AM BOOK JACKET COVER MACHINE OPERATOR Cynthia Mars MD LAB BLOOD ORDERABLES Fin al Result Performing Organization Address [facility] de Phone Number [facility] [place] [address] * Allergen Penicillium chrysogenum (mold) IgE (03/17/2024 9:32 AM BOOK JACKET COVER MACHINE OPERATOR) Penicillium chrysogenum IgE <0.10 0.00 - 0.34 kUnits/L Blood 03/17/2024 9:32 AM BOOK JACKET COVER MACHINE OPERATOR 03/17/2024 11:32 AM BOOK JACKET COVER MACHINE OPERATOR Cynthia Mars MD LAB BLOOD ORDERABLES Fin al Result Performing Organization Address [facility] Phone Number [facility] [place] [address] * Allergen Lambert (tree) IgE (03/17/2024 9:32 AM BOOK JACKET COVER MACHINE OPERATOR) Lambert IgE <0.10 0.00 - 0.34 kUnits/L Blood 03/17/2024 9:32 AM BOOK JACKET COVER MACHINE OPERATOR 03/17/2024 11:32 AM BOOK JACKET COVER MACHINE OPERATOR Cynthia Mars MD LAB BLOOD ORDERABLES Fin al Result Performing Organization Address [facility] [place] [address] * Allergen Mountain juniper (tree) IgE (03/17/2024 9:32 AM BOOK JACKET COVER MACHINE OPERATOR) Mountain juniper IgE <0.10 0.00 - 0.34 kUnits/L Blood 03/17/2024 9:32 AM BOOK JACKET COVER MACHINE OPERATOR 03/17/2024 11:32 AM BOOK JACKET COVER MACHINE OPERATOR Cynthia Mars MD LAB BLOOD ORDERABLES Fin al Result Performing Organization Address [facility] de Phone Number [facility] [place] [address] * Allergen Bermuda grass (grass) IgE (03/17/2024 9:32 AM BOOK JACKET COVER MACHINE OPERATOR) Bermuda grass IgE <0.10 0.00 - 0.34 kUnits/L Blood 03/17/2024 9:32 AM BOOK JACKET COVER MACHINE OPERATOR 03/17/2024 11:32 AM BOOK JACKET COVER MACHINE OPERATOR Cynthia Mars MD LAB BLOOD ORDERABLES Fin al Result Performing Organization Address [facility] de Phone Number [facility] [place] [address] * Allergen Plantain zimbabwean (weed) IgE (03/17/2024 9:32 AM BOOK JACKET COVER MACHINE OPERATOR) Plantain zimbabwean IgE <0.10 0.00 - 0.34 kUnits/L Blood 03/17/2024 9:32 AM BOOK JACKET COVER MACHINE OPERATOR 03/17/2024 11:32 AM BOOK JACKET COVER MACHINE OPERATOR Cynthia Mars MD LAB BLOOD ORDERABLES Fin al Result Performing Organization Address [facility] de Phone Number [facility] [place] [address] * Allergen Elm (tree) IgE (03/17/2024 9:32 AM BOOK JACKET COVER MACHINE OPERATOR) Elm IgE <0.10 0.00 - 0.34 kUnits/L Blood 03/17/2024 9:32 AM BOOK JACKET COVER MACHINE OPERATOR 03/17/2024 11:32 AM BOOK JACKET COVER MACHINE OPERATOR Cynthia Mars MD LAB BLOOD ORDERABLES Fin al Result Performing Organization Address [facility] Co de Phone Number [facility] [place] [address] * Allergen Cladosporium herbarum (mold) IgE (03/17/2024 9:32 AM BOOK JACKET COVER MACHINE OPERATOR) Cladosporium herbarum IgE <0.10 0.00 - 0.34 kUnits/L Blood 03/17/2024 9:32 AM BOOK JACKET COVER MACHINE OPERATOR 03/17/2024 11:32 AM BOOK JACKET COVER MACHINE OPERATOR Cynthia Mars MD LAB BLOOD ORDERABLES Fin al Result Performing Organization Address [facility] [place] [address] * Allergen Birch common silver (tree) IgE (03/17/2024 9:32 AM BOOK JACKET COVER MACHINE OPERATOR) Birch common silver IgE <0.10 0.00 - 0.34 kUnits/L Blood 03/17/2024 9:32 AM BOOK JACKET COVER MACHINE OPERATOR 03/17/2024 11:32 AM BOOK JACKET COVER MACHINE OPERATOR Cynthia Mars MD LAB BLOOD ORDERABLES Fin al Result Performing Organization Address [facility] Co de Phone Number [facility] [place] [address] * (ABNORMAL) Allergen Alternaria tenuis (mold) IgE (03/17/2024 9:32 AM BOOK JACKET COVER MACHINE OPERATOR) Alternaria tenius IgE 3.02(H) 0.00 - 0.34 kUnits/L Blood 03/17/2024 9:32 AM BOOK JACKET COVER MACHINE OPERATOR 03/17/2024 11:32 AM BOOK JACKET COVER MACHINE OPERATOR us Cynthia Mars MD LAB BLOOD ORDERABLES Fin al Result Performing Organization Address City/[facility]/ZIP Co de Phone Number [facility] Department [place] [address] * Allergen Aspergillus fumigatus (mold) IgE (03/17/2024 9:32 AM BOOK JACKET COVER MACHINE OPERATOR) Aspergillus fumigatus IgE <0.10 0.00 - 0.34 kUnits/L Blood 03/17/2024 9:32 AM BOOK JACKET COVER MACHINE OPERATOR 03/17/2024 11:32 AM BOOK JACKET COVER MACHINE OPERATOR Cynthia Mars MD LAB BLOOD ORDERABLES Fin al Result Performing Organization Address [facility] [place] [address] * Allergen Dermatophagoides pteronyssinus (insect) IgE (03/17/2024 9:32 AM BOOK JACKET COVER MACHINE OPERATOR) Dermatophyton pteronyssinus IgE 0.14 0.00 - 0.34 kUnits/L Blood 03/17/2024 9:32 AM BOOK JACKET COVER MACHINE OPERATOR 03/17/2024 11:32 AM BOOK JACKET COVER MACHINE OPERATOR Cynthia Mars MD LAB BLOOD ORDERABLES Fin al Result Performing Organization Address [facility] Co de Phone Number [facility] [place] [address] * Allergen Dermatophagoides farniae (insect) IgE (03/17/2024 9:32 AM BOOK JACKET COVER MACHINE OPERATOR) Dermatophyton farinae IgE 0.16 0.00 - 0.34 kUnits/L Blood 03/17/2024 9:32 AM BOOK JACKET COVER MACHINE OPERATOR 03/17/2024 11:32 AM BOOK JACKET COVER MACHINE OPERATOR Cynthia Mars MD LAB BLOOD ORDERABLES Fin al Result Performing Organization Address City/[facility] Co de Phone Number [facility] [place] [address] * Allergen Epithelia/dander dog (animal) IgE (03/17/2024 9:32 AM BOOK JACKET COVER MACHINE OPERATOR) Dog dander IgE <0.10 0.00 - 0.34 kUnits/L Blood 03/17/2024 9:32 AM BOOK JACKET COVER MACHINE OPERATOR 03/17/2024 11:32 AM BOOK JACKET COVER MACHINE OPERATOR Cynthia Mars MD LAB BLOOD ORDERABLES Fin al Result Performing Organization Address City/[facility] Co de Phone Number [facility] [place] [address] * Allergen Cockroach ukrainian (insect) IgE (03/17/2024 9:32 AM BOOK JACKET COVER MACHINE OPERATOR) Cockroach IgE <0.10 0.00 - 0.34 kUnits/L Blood 03/17/2024 9:32 AM BOOK JACKET COVER MACHINE OPERATOR 03/17/2024 11:32 AM BOOK JACKET COVER MACHINE OPERATOR Result [facility] Cynthia Mars MD LAB BLOOD ORDERABLES Fin al Result Performing Organization Address [facility] Co de Phone Number [facility] [place] [address] * Allergen Epithelia/dander cat (animal) IgE (03/17/2024 9:32 AM BOOK JACKET COVER MACHINE OPERATOR) Cat dander IgE <0.10 0.00 - 0.34 kUnits/L Blood 03/17/2024 9:32 AM BOOK JACKET COVER MACHINE OPERATOR 03/17/2024 11:32 AM BOOK JACKET COVER MACHINE OPERATOR Cynthia Mars MD LAB BLOOD ORDERABLES Fin al Result Performing Organization Address City/[facility] Co de Phone Number [facility] [place] [address] * Allergen Ragweed short/common (weed) IgE (03/17/2024 9:32 AM BOOK JACKET COVER MACHINE OPERATOR) Ragweed common IgE <0.10 0.00 - 0.34 kUnits/L Blood 03/17/2024 9:32 AM BOOK JACKET COVER MACHINE OPERATOR 03/17/2024 11:32 AM BOOK JACKET COVER MACHINE OPERATOR Cynthia Mars MD LAB BLOOD ORDERABLES Fin al Result Performing Organization Address City/[facility] Co de Phone Number [facility] Department [place] [address] * Allergen Pigweed, rough (weed) IgE (03/17/2024 9:32 AM BOOK JACKET COVER MACHINE OPERATOR) Pigweed rough IgE <0.10 0.00 - 0.34 kUnits/L Blood 03/17/2024 9:32 AM BOOK JACKET COVER MACHINE OPERATOR 03/17/2024 11:32 AM BOOK JACKET COVER MACHINE OPERATOR Cynthia Mars MD LAB BLOOD ORDERABLES Fin al Result Performing Organization Address [facility] Co de Phone Number [facility] [place] [address] * Allergen Nettle (weed) IgE (03/17/2024 9:32 AM BOOK JACKET COVER MACHINE OPERATOR) Nettle IgE <0.10 0.00 - 0.34 kUnits/L Blood 03/17/2024 9:32 AM BOOK JACKET COVER MACHINE OPERATOR 03/17/2024 11:32 AM BOOK JACKET COVER MACHINE OPERATOR Cynthia Mars MD LAB BLOOD ORDERABLES Fin al Result Performing Organization Address City/[facility] Co de Phone Number [facility] [place] [address] * Allergen Parrish's quarter (weed) IgE (03/17/2024 9:32 AM BOOK JACKET COVER MACHINE OPERATOR) Parrish's quarters IgE <0.10 0.00 - 0.34 kUnits/L Blood 03/17/2024 9:32 AM BOOK JACKET COVER MACHINE OPERATOR 03/17/2024 11:32 AM BOOK JACKET COVER MACHINE OPERATOR Result [facility] Cynthia Mars MD LAB BLOOD ORDERABLES Fin al Result Performing Organization Address [facility] Co de Phone Number [facility] [place] [address] * Allergen Hany grass (grass) IgE (03/17/2024 9:32 AM BOOK JACKET COVER MACHINE OPERATOR) Hany grass IgE 0.23 0.00 - 0.34 kUnits/L Blood 03/17/2024 9:32 AM BOOK JACKET COVER MACHINE OPERATOR 03/17/2024 11:32 AM BOOK JACKET COVER MACHINE OPERATOR Cynthia Mars MD LAB BLOOD ORDERABLES Fin al Result Performing Organization Address [facility] Co de Phone Number [facility] [place] [address] * Allergen Clifton grass (grass) IgE (03/17/2024 9:32 AM BOOK JACKET COVER MACHINE OPERATOR) Clifton grass IgE 0.15 0.00 - 0.34 kUnits/L Blood 03/17/2024 9:32 AM BOOK JACKET COVER MACHINE OPERATOR 03/17/2024 11:32 AM BOOK JACKET COVER MACHINE OPERATOR Result [facility] Cynthia Mars MD LAB BLOOD ORDERABLES Fin al Result Performing Organization Address [facility] Co de Phone Number [facility] [place] [address] * Allergen Spencer (tree) IgE (03/17/2024 9:32 AM BOOK JACKET COVER MACHINE OPERATOR) Spencer (tree) IgE <0.10 0.00 - 0.34 kUnits/L Blood 03/17/2024 9:32 AM BOOK JACKET COVER MACHINE OPERATOR 03/17/2024 11:32 AM BOOK JACKET COVER MACHINE OPERATOR Cynthia Mars MD LAB BLOOD ORDERABLES Fin al Result Performing Organization Address [facility] Co de Phone Number [facility] [place] [address] * Allergen Maplewood ukrainian (tree) IgE (03/17/2024 9:32 AM BOOK JACKET COVER MACHINE OPERATOR) Maplewood IgE <0.10 0.00 - 0.34 kUnits/L Blood 03/17/2024 9:32 AM BOOK JACKET COVER MACHINE OPERATOR 03/17/2024 11:32 AM BOOK JACKET COVER MACHINE OPERATOR Cynthia Mars MD LAB BLOOD ORDERABLES Fin al Result Performing Organization Address [facility] de Phone Number [facility] Department [place] [address] * Allergen Maple/Box elder (tree) IgE (03/17/2024 9:32 AM BOOK JACKET COVER MACHINE OPERATOR) Maple/box elder IgE <0.10 0.00 - 0.34 kUnits/L Blood 03/17/2024 9:32 AM BOOK JACKET COVER MACHINE OPERATOR 03/17/2024 11:32 AM BOOK JACKET COVER MACHINE OPERATOR Cynthia Mars MD LAB BLOOD ORDERABLES Fin al Result Performing Organization Address [facility] Co de Phone Number [facility] [place] [address] * Allergen Milford red (tree) IgE (03/17/2024 9:32 AM BOOK JACKET COVER MACHINE OPERATOR) Milford IgE <0.10 0.00 - 0.34 kUnits/L Blood 03/17/2024 9:32 AM BOOK JACKET COVER MACHINE OPERATOR 03/17/2024 11:32 AM BOOK JACKET COVER MACHINE OPERATOR us Cynthia Mars MD LAB BLOOD ORDERABLES Fin al Result [facility] [place] [address] from Last 3 Months Insurance Member Subscriber Plan / Payer (Ef fective 2023-Present) Name:Armand Coburn Relation to Subscriber:Self Name:Armand Coburn Payer ID:[id number] (NAIC) Group ID:Not on file Type:MEDICAID RISK OTHER Address: [place] [address] [place] [address] [facility] MEDICAID Care Teams Priming Mixture Carrier Relationship Specialty Start Date End Date Kermit Zavala MD [address] [address] PCP - General Internal Medicine 11/09/17
[2024-05-24 14:03] VITALS: BP 126/93; PULSE 85; RESP 18; TEMP 36.6; O2SAT 100
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
[2024-05-24] MEDS: TETANUS,DIPHTHERIA,AC PERTUSSIS ADULT (0.5 ML) BOOSTRIX IM (14:24)
== END 2024-05-24 14:28 | disposition home or self-care (01) ==
PROVIDERS: Emergency Provider Nurse Practitioner Family; PCP Student in an Organized Health Care Education/Training Program
DX: S51.852A Open bite of left forearm, initial encounter (principal); W50.3XXA Accidental bite by another person, initial encounter; J45.909 Unspecified asthma, uncomplicated; Z23 Encounter for immunization
CPT/HCPCS: 90471; 90715; 99213; G0463

== ENCOUNTER 2025-01-02 23:00 | Emergency (ER) | payer BC, MEDICAID, SELFPAY ==
--- OUTSIDE RECORDS SUMMARY | 2025-01-02 23:16 | XMS_ITS | Encounter Summary ---
Author Organization [facility] Address [facility] [place] [address] Care Team Providers Care Criminal Justice Program Director Name Role Phone Carmen Dacosta MD Primary Care Provider [phone] Sherrell Myles MD Primary Care Provider + Encounter Details Date Type Department Care Team (Latest Contact Info) Description 02/26/2023 MyChart Message Enc [facility] Medical Group Multispecialty Care - [place] [address] [address] [place] [address] Carmen Dacosta MD [address] [place] [address] EEG and Heart Monitor Social History [...] Information Value Date Recorded Sex Assigned at Female 08/06/2024 2:10 PM CDT Legal Sex Female 4:15 PM VALIDATION CONSULTANT Gender Identity Female 03/14/2022 5:57 AM VALIDATION CONSULTANT Sexual Orientation Straight 03/14/2022 5: 57 AM VALIDATION CONSULTANT documented as of this encounter Plan of Treatment Not on file documented as of this encounter Visit Diagnoses Not on filedocumented in this encounter Additional Health Concerns Assessment Noted Time PHQ-9 Depression Total Score: 9 01/25/20 23 4:50 PM CDT documented as of this encounter Care Teams Criminal Justice Program Director Relationship Specialty Start Date End Date Carmen Dacosta MD [address] [facility] [address] [place] [address] PCP - General INTERNAL MEDICINE 10/02/22 01/10/24 Sherrell Myles MD [address] [facility] [address] [place] [address] PCP - General FAMILY PRACTICE 01/11/24 documented as of this encounter
--- OUTSIDE RECORDS SUMMARY | 2025-01-02 23:16 | XMS_ITS | Encounter Summary ---
Author Organization [facility] Address [address] [place] [address] Care Team Providers Care Real Estate Acquisition Analyst Name Role Phone Cirilo Kurtz MD Primary Care Pr ovider [facility] Carmen Dacosta MD Primary Care Provider [phone] Sherrell Myles MD Primary Care Provider + Encounter Details Date Type Department Care Team (Late st Contact Info) Description 03/28/2022 MyChart Message Enc [facility] Medical Group Multispecialty Care - [address] [place] [address] Florence Moscoso NP [place] [...] PM CDT Legal Sex Female 4:15 PM CHIROPRACTIC TEACHER Gender Identity Female 03/14/2022 5:57 AM CHIROPRACTIC TEACHER Sexual Orientation Straight 03/14/2022 5: 57 AM CHIROPRACTIC TEACHER COVID-19 Exposure Response Date Recorded In the last 10 days, have yo u been in contact with someone who was confirmed or suspected to have Coronavirus/COVID-19? No / Unsure 03/24/2022 10:48 AM CHIROPRACTIC TEACHER documented as of this encounter Plan of Treatment Not on file documented as of this encounter Visit Diagnoses Not on filedocumented in this encounter Care Teams Real Estate Acquisition Analyst Relationship Specialty Start Date End Date Cirilo Kurtz MD PCP - General FAMILY PRACTICE 03/15/22 10/01/22 Carmen Dacosta MD [address] [facility] [address] [place] [address] PCP - General INTERNAL MEDICINE 10/02/22 01/10/24 Sherrell Myles MD [address] [place] [address] PCP - General FAMILY PRACTICE 01/11/24 documented as of this encounter
--- OUTSIDE RECORDS SUMMARY | 2025-01-02 23:16 | XMS_ITS | Encounter Summary ---
Author Organization [facility] Address [facility] [place] [address] Care Team Providers Care Cigar Wrapper Tender Automatic Name Role Phone Carmen Dacosta MD Primary Care Provider [phone] Sherrell Myles MD Primary Care Provider + Encounter Details Date Type Department Care Team (Late st Contact Info) Description 06/22/2023 Acoustic Sensing Technology Message Enc [facility] Medical Group Multispecialty Care - [address] [place] [address] [facility] Provider Heart Monitor Social History Tobacco Use [...] PM CDT Legal Sex Female 4:15 PM WINDOW DRAPER Gender Identity Female 03/14/2022 5:57 AM WINDOW DRAPER Sexual Orientation Straight 03/14/2022 5: 57 AM WINDOW DRAPER documented as of this encounter Plan of Treatment Not on file documented as of this encounter Visit Diagnoses Not on filedocumented in this encounter Additional Health Concerns Assessment Noted Time PHQ-9 Depression Total Score: 9 03/14/20 23 2:20 PM WINDOW DRAPER documented as of this encounter Care Teams Cigar Wrapper Tender Automatic Relationship Specialty Start Date End Date Carmen Dacosta MD [address] [facility] [address] [place] [address] PCP - General INTERNAL MEDICINE 10/02/22 01/10/24 Sherrell Myles MD [address] [facility] [address] [place] [address] PCP - General FAMILY PRACTICE 01/11/24 documented as of this encounter
--- OUTSIDE RECORDS SUMMARY | 2025-01-02 23:16 | XMS_ITS | Encounter Summary ---
Author Organization [facility] Address [facility] [place] [address] Care Team Providers Care Fact Checker Name Role Phone Sherrell Myles MD Primary Care Provider + Encounter Details Date Type Department Care Team (Late st Contact Info) Description 07/28/[address] [facility] Medical [facility] Family Medicine - [place] [address] [place] [address] Sherrell Myles MD [address] [place], [place] [id number] Jaclyn Henriquez Symptoms Social History Tobacco Use Types Packs/Day Years Used Date Smoking Tobacco: Never Passive Smoke Exposure: Never Smokeless Tobacco: Never Comments:Counseled by Dr Francoise benson Alcohol Use Standard Drinks/Week Comments Never 0 (1 standard drink = 0.6 oz pur e alcohol) some AUDIT-C Answer Date Recorded Q1: How often do you have a drink containing alcohol? Never 09/12/2023 Q2: How many drinks containi ng alcohol do you have on a typical day when you are drinking? Patient does not drink Q3: How often do you have si x or more drinks on one occasion? Never 09/12/2023 PHQ-2 Answer Date Recorded Patient Health Questionnaire-2 Score 5 07/25/2024 Comments No Sex and Gender Information Value Date Recorded Sex Assigned at Female 08/06/2024 2:10 PM CDT Legal Sex Female 4:15 PM BRIDGE CLUB MANAGER Gender Identity Female 03/14/2022 5:57 AM BRIDGE CLUB MANAGER Sexual Orientation Straight 03/14/2022 5: 57 AM BRIDGE CLUB MANAGER documented as of this encounter Progress Notes * Sherrell Myles MD - 07/29/2024 9:56 AM CDT Please request follow up appointment. documented in this encounter Plan of Treatment Not on file documented as of this encounter Visit Diagnoses Not on filedocumented in this encounter Additional Health Concerns Assessment Noted Time PHQ-9 Depression Total Score: 18 025 9:27 AM CDT documented as of this encounter Care Teams Fact Checker Relationship Specialty Start Date End Date Sherrell Myles MD [address] [facility] [address] [place] [address] PCP - General FAMILY PRACTICE 01/11/24 documented as of this encounter
--- OUTSIDE RECORDS SUMMARY | 2025-01-02 23:16 | XMS_ITS | Clinical Summary ---
Author Organization [facility] Address [address] [place] [address] Care Team Providers Care Drafting Clerk Name Role Phone Sherrell Myles MD Primary Care Provider + Allergies No known active allergies Medications albuterol sulfate HFA 108 (90 Base) MCG/ACT inhalerIndication s:Mild intermittent asthma without complication (HHS/HCC) Inhale 2 puffs into the lungs every 4 (four) hours as needed for Wheezing. 18 g 1 01/14/20 24 Active ELURYNG 0.12-0.015 MG/24HR RING INSERT ONE RING VAGINALLY AND LEAVE IN PLACE FOR 3 CONSECUTIVE WEEKS, THEN REMOVE FOR 1 WEEK. INSERT NEW RING 7 DAYS AFTER THE LAST WAS REMOVED 03/06/20 23 025 Discontin ued(Thera py completed ) clindamycin (CLEOCIN T) 1 % gelIndications:Ac ne, unspecified acne type Apply topically 2 (two) times daily. 30 g 1 01/14/20 24 025 Discontin ued(Thera py completed ) venlafaxine XR (EFFEXOR-XR) 37.5 MG 24 hr capsuleIndication s:Anxiety,Moderat e major depression (CMS/HCC) Take 1 capsule (37.5 mg total) by mouth daily. 90 capsule 09/24/19 25 025 Discontin ued(Thera py completed ) Atomoxetine HCl 100 MG CapIndications:At tention deficit hyperactivity disorder (ADHD), combined type Take 1 capsule by mouth once daily in the morning 30 capsule 10/31/19 25 025 Discontin ued(Thera py completed ) Active Problems Problem Noted Date Diagnosed Date Irritable bowel syndrome with constipation 01/13 Anemia 07/25/2022 Attention deficit hyperactiv ity disorder (ADHD), combined type 05/21/2022 Overview (07/14/2024): Took Adderall but noticed cardia. Reduced dose did help but she decided to make lifestyle changes instead. Avoids food dyes. Has only taken supplements since March. Taking fish oil. Less foggy. Still struggling to focus. Has tried wellbutrin and fluoxetine but did not help. Wonders about other options. Assessment & Plan (07/25/2024 10:40 AM CDT): First we will trial off the Strattera to see if this is causing nausea which occurs in up to 20% of individuals taking the medication. Assessment & Plan (07/14/2024 8:49 AM CDT): Not controlled but would like to avoid stimulants if possible. Will trial Strattera. Will start with 40 mg daily and increase to 80 mg after 1 week if tolerated. Assessment & Plan (03/10/2024 9:11 AM PARACHUTE HARNESS RIGGER): Chronic. Not currently appropriately managed and she [...] Contract signed. Anxiety 05/21/2022 Moderate episode of recurrent major depressive d isorder 05/21/2022 Overview (07/14/2024): Reduced dose of venlafaxine from 150 mg daily to 75 mg daily. She notes that overall she is doing well but has some recent stressors which mimicked her depression symptoms. Specifically she is trying to figure out if she can change degrees. 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 Assessment & Plan (07/25/2024 10:40 AM CDT): 01/14/2024 10:22 AM 07/14/2024 8:50 AM 07/25/2024 9:05 AM PHQ-9 Score Patient Health Questionnaire-9 Score 13 15 18 Not controlled. Discussed options of increasing venlafaxine which she is agreeable to. Will increase back up to 150 mg daily. Assessment & Plan (07/14/2024 8:50 AM CDT): We discussed a possible adjustment to depression medications but for now we will continue with the current regimen. Assessment & Plan (03/10/2024 9:12 AM PARACHUTE HARNESS RIGGER): Chronic and controlled. Trial reduction in venlafaxine to 75 mg daily. Assessment & Plan (01/14/2024 10:50 AM CDT): Trial reduction in venlafaxine. Recommend reducing to 150 mg daily. Acne vulgaris 07/06/2017 Overview (06/08/2022): Onset age 8; minimal use of clindamycin and tretinoin (<6g/mo) and MCN x3mo 07/06/17 moderate-severe with scarring; Rx Sailaja, tretinoin 0.05% cr, clinda lotion, BPO wash; consider isotretinoin Asthma ([facility]) 03/13/2009 Overview (01/14/2024): Reports intermittent wheezing. Worse when ill or in the winter. Assessment & Plan (01/14/2024 10:49 AM CDT): Mild intermittent. Continue albuterol as needed. Comments Yes Encounters Date Type Department Care Team Description 12/15/[address] [address] Sherrell Myles MD Lab Order 12/12/2024 1:30 PM CDT Office Visit [address] [address] Sherrell Myles MD Medication Check (Wants to get off her depression meds. Also, wants to discuss her colon issues. ) 12/12/2024 Travel 10/21/2024 12:20 PM CDT Office Visit [address] [address] Sherrell Myles MD ER F/U (Stomach cramps. Worse after she eats. She vomits occ after eating. ) 10/21/2024 - 10/21/2024 11:59 PM CDT Hospital Encounter [facility] [address] Sherrell Myles MD Discharge Disposition: Home or Self Care (Routine Discharge) 10/21/2024 Results Follow-Up [address] [address] Sherrell Myles MD URINALYSIS AUTO DIP, URINE BACTERIA CULTURE 10/21/2024 Travel 10/19/2024 Scan HEALTH INFO SRVCS Scanned, Doc Med Group from Last 3 Months Immunizations Immunization Administration Dates Next Due NMbX-TosU-OLV (Pediarix) 04/27/2004,02/26/2004 DTaP-IPV (Kinrix) 11/05/2008 Dtap (Generic) 02/06/2005,2003 Fluzone 6 Months+ Quad (0.5 mL Prefilled Syringe) 01/24/2023,04/17/2022 HPV GARDASIL 9-VALENT 07/14/2024,03/14/2024,12/29 Hepatitis A (Havrix [address]) 10/29/2006, 006 [...] Dr Dacosta Alcohol Use Standard Drinks/Week Comments Not Currently 0 (1 standard drink = 0.6 oz [...] Patient Health Questionnaire-2 Score 5 07/25/2024 Comments Yes Sex and Gender Information Value Date Recorded Sex Assigned at Female 08/06/2024 2:10 PM CDT Legal Sex Female 4:15 PM PARACHUTE HARNESS RIGGER Gender Identity Female 03/14/2022 5:57 AM PARACHUTE HARNESS RIGGER Sexual Orientation Straight 03/14/2022 5: 57 AM PARACHUTE HARNESS RIGGER Last Filed Vital Signs Vital Sign Reading Time Taken Comments Blood Pressure 132/82 12/12/2024 1:36 PM CDT Pulse 93 12/12/2024 1:36 PM CDT Temperature 36.4 C (97.6 F) 12/12/2024 1:36 PM CDT Respiratory Rate 16 03/10/2024 9:10 AM PARACHUTE HARNESS RIGGER Oxygen Saturation 98% 12/12/2024 1:36 PM CDT Inhaled Oxygen Concentration - - Weight 78.6 kg (173 lb 3.2 oz) 12/12/2024 1:36 P M CDT Height 160 cm (5' 3) 12/12/2024 1:36 PM CDT Body Mass Index 30.68 12/12/2024 1:36 PM CDT Plan of Treatment Health Maintenance Due Date Last Done Comments Cervical Cancer Screening Pap Smear (Age 21 to 29) Every 3 Years 2003 Cervical Cancer Screening 2003 Chlamydia Screening Females ages 16-24 2019 COVID-19 Vaccine ( season) 2023 12/15/2020, 11/24/2020 Pneumococcal Vaccine: Pediatrics (0 to 5 Years) and At-Risk Patients (6 to 49 Years) (2 of 2 - PCV) 03/14/2024 03/14/2023, 02/06/2005, 04/27/2004, Additional history exists Annual Physical 09/11/2024 09/12/2023, 05/18/2022 DTaP, Tdap and Td Vaccines (8 - Td or Tdap) 01/13/2034 01/14/2024, 12/12/2013, 11/05/2008, Additional history exists RSV Immunization or 60+ Years (1 - 1-dose 75+ series) 10/26/2078 Hepatitis B Vaccines Completed 04/27/2004, 02/26/2004, 2003, Additional history exists Meningococcal Vaccine Completed 03/17/2020, 015 Meningococcal B Vaccine Completed 12/22/2020, 11/09 Hepatitis C Completed 09/12/2023 HPV Vaccines Completed 07/14/2024, 02/28, 01/14/2024 PHQ-2 (Physician [place]) Completed 07/25/2024 RSV Immunizations Under 20 Months Aged Out No longer eligible based on patient's age to complete this topic Procedures Procedure Name Priority Date/Time Associated Diagnosis Comments URINE BACTERIA CULTURE Routine 10/21/2024 1:27 PM CDT Urinary symptom or sign URINALYSIS AUTO DIP Routine 10/21/2024 Urinary symptom or sign HEPATITIS C ANTIBODY Routine 09/12/2023 3:01 PM CDT Encounter for hepatitis C screening test for low risk patient from Last 3 Months or Most Recently Relevant to Health Maintenance Results * URINE BACTERIA CULTURE (10/21/2024 1:27 PM CDT) SPEC DESCRIPTION URINE CLEAN CATCH 10/21/2024 7:19 PM CDT [facility] SPECIAL REQUESTS NO SPECIAL REQUEST 10/21/2024 7:19 PM CDT [facility] CULTURE RESULT NO GROWTH (< OR = 1,000 CFU/ML) 10/23/2024 9:39 AM CDT [facility] URINE SPECIMEN OBTAINED BY CLEAN CATCH PROCEDURE / Unknown 10/21/2024 1:27 PM CDT 10/21/2024 8:47 PM CDT us Sherrell Myles MD MICROBIOLOGY - GENERAL O RDERABLES Final Result [facility] [address] [place] [address], [place] [phone] [id number] * (ABNORMAL) URINALYSIS AUTO DIP (10/21/2024) COLOR (U) YELLOW YELLOW [address], ANIL TRANSPARENCY CLOUDY(A) CLEAR [address], ANIL GLUCOSE (U) NEGATIVE NEGATIVE MG/DL [address], ANIL BILIRUBIN (U) NEGATIVE NEGATIVE [address], ANIL KETONES MG/DL (U) NEGATIVE NEGATIVE MG/DL [address], ANIL SPECIFIC GRAVITY (U) 1.025 1.001 - 1.035 [address], ANIL BLOOD (U) SMALL (1+, Non Hemolyzed)(A ) NEGATIVE [address], ANIL U PH 5.5 5.0 - 9.0 [address], ANIL PROTEIN (U) NEGATIVE NEGATIVE mg/dL [address], ANIL UROBILINOGEN 1.0 0.2 - 1.0 EU/dL = mg/dL [address], ANIL NITRITES NEGATIVE NEGATIVE MG/DL [address], ANIL LEUKOCYTES (U) NEGATIVE NEGATIVE [address], ANIL URINE SPECIMEN FROM URETHRA / Unknown 10/21/2024 Sherrell Myles MD URINE ORDERABLES Final R esult [address], ANIL [address] [place] [address], * HEPATITIS C ANTIBODY ([facility] ONLY) (09/12/2023 3:01 PM CDT) HEPATITIS C AB NON-REACTI VE NON-REACT ANAIS 09/12/2023 10:00 PM CDT [facility] Comment: ANTIBODIES TO HCV NOT DETECTED. DOES NOT EXCLUDE THE POSSIBILITY OF EXPOSURE TO HCV. 09/12/2023 3:01 PM CDT Carmen Dacosta MD LABORATORY Final Result [facility] [address] [place] [address], [id number] from Last 3 Months or Most Recently Relevant to Health Maintenance Insurance [facility] Care Teams Drafting Clerk Relationship Specialty Start Date End Date Sherrell Myles MD [address] [place] [address] PCP - General FAMILY PRACTICE 01/11/24
--- OUTSIDE RECORDS SUMMARY | 2025-01-02 23:16 | XMS_ITS | Clinical Summary ---
Author Organization [facility] Address [address] [place] [address] Care Team Providers Care Piper Installer Name Role Phone Sherrell Myles MD Primary Care Provider Allergies No known active allergies Medications tretinoin (RETIN-A) 0.05 % cream APPLY PEA SIZE AMOUNT TO FACE EVERY OTHER NIGHT FOR 1 TO 2 WEEKS AND THEN EVERY NIGHT AT BEDTIME 2 10/17/19 17 Active minocycline (MINOCIN,DYNACIN) 100 mg capsule 0 11/14/19 17 Active clindamycin (CLEOCIN T) 1 % external solution Apply topically 2 (two) times a day. Active propranolol (INDERAL) 10 mg tablet TK 1 T PO BID 3 05/21/19 18 Active albuterol HFA (PROVENTIL HFA,VENTOLIN HFA,PROAIR HFA) 90 mcg/actuation inhaler Inhale 2 puffs every 4 (four) hours as needed 10/12/19 22 Active busPIRone (BUSPAR) 10 mg tablet Take 1 tablet (10 mg total) by mouth 2 (two) times a day 01/14/20 24 Active dextroamphetamine- amphetamine XR (ADDERALL XR) 10 mg 24 hr capsule Take 1 capsule (10 mg total) by mouth manager nc before breakfast 03/10/20 24 Active EluRyng 0.12-0.015 mg/24 hr vaginal ring [...] capsule (75 mg total) by mouth daily 03/10/20 24 Active budesonide-formote roL (Symbicort) 160-4.5 mcg/actuation inhalerIndications :Mild intermittent asthma without complication Inhale 2 puffs 2 (two) times a day Rinse mouth with water after use. Do not swallow. Use with Spacer. Up to 12 doses in 24 hours. 1 each 03/17/20 24 Active inhalational spacing device (Aerochamber Plus Z Stat) spacerIndications: Mild intermittent asthma without complication 1 Inhalation as needed (with inhaler) 1 each 3 03/17/20 24 Active mometasone (NASONEX) 50 mcg/actuation nasal sprayIndications:A llergic Rhinitis Administer 2 sprays into each nostril 2 (two) times a day 17 g 03/17/20 24 025 Active cetirizine (ZyrTEC) 10 mg tabletIndications: Urticaria,Seasonal allergic rhinitis due to pollen Take 1 tablet (10 mg total) by mouth daily 90 tablet 3 03/17/20 24 Active ondansetron ODT (ZOFRAN-ODT) 4 mg disintegrating tablet Take 1 tablet (4 mg total) by mouth every 8 (eight) hours as needed for nausea 20 tablet 10/20/19 25 Active ketorolac (TORADOL) 10 mg tablet Take 1 tablet (10 mg total) by mouth every 6 (six) hours as needed for pain 20 tablet 10/20/19 25 Active Active Problems Problem Noted Date Diagnosed Date Acute streptococcal pharyngitis 05/24/2016 Overview (08/10/2016): Strep throat Acute suppurative otitis med ia without spontaneous rupture of ear drum 12/24/2015 Overview (08/10/2016): Acute suppurative otitis media of left ear without spontaneous rupture of tympanic membrane, recurrence not specified Encounters Date Type Department Care Team Description 10/19/2024 4:50 PM CDT - 10/19/2024 6:39 PM CDT Emergency [facility] Emergency Department [address] [place] [address] Abdominal pain (Primary Dx); Nausea and vomiting, unspecified vomiting type Discharge Disposition: Discharge to home or self care from Last 3 Months Surgical History Surgery [...] drink = 0.6 oz pur e alcohol) Personal Safety Answer Date Recorded Have you ever been in or are you currently in a harmful physical or emotional relationship or is someone making you feel afraid or unsafe? 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 Gender Identity Not on file Sexual Orientation Not on file Obstetrics History Last Filed Vital Signs Vital Sign Reading Time Taken Comments Blood Pressure 134/102 10/19/2024 6:35 PM CDT Pulse 94 10/19/2024 6:35 PM CDT Temperature 36.3 C (97.3 F) 10/19/2024 4:43 PM CDT Respiratory Rate 16 10/19/2024 6:35 PM CDT Oxygen Saturation 100% 10/19/2024 6:35 PM CDT Inhaled Oxygen Concentration - - Weight 74.8 kg (165 lb) 10/19/2024 4:44 PM CDT Height 160 cm (5' 3) 10/19/2024 4:44 PM CDT Body Mass Index 29.23 10/19/2024 4:44 PM CDT Plan of Treatment Health Maintenance Due Date Last Done Comments Cervical Cancer Screening 2003 Hepatitis C Screening 2003 Depression Screening 07/02/2018 07/02/2017 Regular Well Visit/Exam 18-64 10/26/2021 Covid-19 Vaccine ( - 2023-2 5 season) 2023 12/15/2020, 11/24/2020 HPV Vaccines (3 - 3-dose series) 07/13/2024 03/14/20 24, 01/14/2024 Influenza Vaccine (#1) 2024 3, 04/17/2022, 03/17/2020, Additional history exists DTaP/Tdap/Td Vaccine (8 - Td or Tdap) 01/13/2034 01/14/2024, 12/12/2013, 11/05/2008, Additional history exists Pneumococcal vaccine <65 (2 of 2 - PCV20 or PCV21) 10/26/2053 03/14/2023, 02/06/2005, 04/27/2004, Additional history exists Hepatitis B Screening Completed 04/27/2004 , 02/26/2004, 2003, Additional history exists Varicella Vaccines Completed 11/25/2007, 11/14/2004 Meningococcal Vaccine Completed 03/17/2020, 015 Meningococcal B Vaccine Completed 12/22/2020, 11/09 Procedures Procedure Name Priority Date/Time Associated Diagnosis Comments CT ABDOMEN PELVIS W CONTRAST ED 10/19/2024 5:36 PM CDT POCT HCG, URINE Routine 10/19/2024 5:09 PM CDT URINALYSIS, MICROSCOPIC ONLY STAT 10/19/2024 5:09 PM CDT URINALYSIS AND REFLEX TO MICROSCOPIC AND CULTURE STAT 10/19/2024 5:09 PM CDT EGFR STAT 10/19/2024 4:50 PM CDT DIFFERENTIAL AUTO STAT 10/19/2024 4:5 0 PM CDT LIPASE STAT 10/19/2024 4:50 PM CDT COMPREHENSIVE METABOLIC PANEL STAT 10/19/2024 4:50 PM CDT CBC WITH AUTO DIFFERENTIAL STAT 10/19/2024 4:50 PM CDT from Last 3 Months Results * CT Abdomen Pelvis W Contrast (10/19/2024 5:36 PM CDT) Anatomical Region Laterality Modality Body N/A Computed Tomogra phy 10/19/2024 5:47 PM CDT Narrative 10/19/2024 6:04 PM CDT EXAM DESCRIPTION: CT ABDOMEN PELVIS W CONTRAST REASON FOR STUDY: Abdominal pain, acute, nonlocalized Pt states she has had abdominal pain and nausea since . Pt states it happens after she eats and when she stands. Pt has lower mid abdominal pain. Pt states she has IBS. Pt has constipation. TECHNIQUE: CT scan of the abdomen and pelvis performed with intravenous and without oral contrast using helical scanning technique with dynamic intravenous contrast injection. Reconstructed coronal and sagittal MPR images reviewed. All images stored on PACS. Automated exposure control was used as a dose optimization technique for this examination. CONTRAST TYPE/DOSE: 75mL of IOVERSOL 350 MG IODINE/ML INTRAVENOUS SYRINGE injected via intravenous COMPARISON: None available. FINDINGS: LOWER CHEST: No significant pulmonary abnormalities. No effusion. LIVER: Normal size. No identified cystic or solid masses. GALLBLADDER: No stones identified. No wall thickening or inflammatory changes. BILE DUCTS: No intrahepatic or extrahepatic ductal dilatation. SPLEEN: Normal size. No focal lesions. PANCREAS: No identified cystic or solid masses. No significant calcifications. No adjacent inflammation or peripancreatic fluid collections. Pancreatic duct not dilated. ADRENALS: Normal. KIDNEYS/URINARY TRACT: No identified significant cystic or solid masses. No visualized stones. No hydronephrosis or hydroureter. Symmetric enhancement. Urinary bladder is unremarkable. GI: No dilated bowel loops. No obvious wall thickening. Normal appendix. No significant diverticular disease. PERITONEUM: No ascites or free air. Small fat containing umbilical hernia. RETROPERITONEUM: No mass or adenopathy. REPRODUCTIVE: A pessary device is noted in place. No significant abnormality. VASCULATURE: No abdominal aortic aneurysm. MUSCULOSKELETAL: No significant abnormality. OTHER: No other abnormality. IMPRESSION: 1. No acute intra-abdominal/pelvic abnormality. 2. Additional findings; as detailed. THIS IS AN ELECTRONICALLY VERIFIED FINAL REPORT 10/19/2024 6:04 PM - Electronically signed by Juan José Reza M.D. MF: [email or web address] Report ID: [id number] Reading Location: [id number] Procedure Note Juan José Reza, DO - 10/19/2024 EXAM DESCRIPTION: CT ABDOMEN PELVIS W CONTRAST REASON FOR STUDY: Abdominal pain, acute, nonlocalized Pt states she has had abdominal pain and nausea since . Pt statesit happens after she eats and when she stands. Pt has lower mid abdominalpain. Pt states she has IBS. Pt has constipation. TECHNIQUE: CT scan of the abdomen and pelvis performed with intravenousand without oral contrast using helical scanning technique with dynamic intravenous contrast injection. Reconstructed coronal and sagittal MPRimages reviewed. All images stored on PACS. Automated exposure control was usedas a dose optimization technique for this examination. CONTRAST TYPE/DOSE: 75mL of IOVERSOL 350 MG IODINE/ML INTRAVENOUSSYRINGE injected via intravenous COMPARISON: None available. FINDINGS: LOWER CHEST: No significant pulmonary abnormalities. No effusion. LIVER: Normal size. No identified cystic or solid masses. GALLBLADDER: No stones identified. No wall thickening or inflammatory changes. BILE DUCTS: No intrahepatic or extrahepatic ductal dilatation. SPLEEN: Normal size. No focal lesions. PANCREAS: No identified cystic or solid masses. No significant calcifications. No adjacent inflammation or peripancreatic fluidcollections. Pancreatic duct not dilated. ADRENALS: Normal. KIDNEYS/URINARY TRACT: No identified significant cystic or solid masses.No visualized stones. No hydronephrosis or hydroureter. Symmetricenhancement. Urinary bladder is unremarkable. GI: No dilated bowel loops. No obvious wall thickening. Normalappendix. No significant diverticular disease. PERITONEUM: No ascites or free air. Small fat containing umbilicalhernia. RETROPERITONEUM: No mass or adenopathy. REPRODUCTIVE: A pessary device is noted in place. No significant abnormality. VASCULATURE: No abdominal aortic aneurysm. MUSCULOSKELETAL: No significant abnormality. OTHER: No other abnormality. IMPRESSION: 1. No acute intra-abdominal/pelvic abnormality. 2. Additional findings; as detailed. THIS IS AN ELECTRONICALLY VERIFIED FINAL REPORT 10/19/2024 6:04 PM - Electronically signed by Juan José Reza M.D. MF: FROYLAN Report ID: [id number] Reading Location: [id number] VASQUEZ IMG CT PROCEDURES Final Result * (ABNORMAL) Urinalysis reflex to microscopic and culture Urine (10/19/2024 5:09 PM CDT) Color, ur Yellow Yellow Clarity, ur Turbid(A) Clear [facility] ([place]) Specific gravity, ur 1.028 1.003 - 1.030 [facility] ([place]) pH, urine 6.5 [facility] ([place]) Comment: Interpretive Data U rine pH is affected by diet, medications, systemic acid-base disturbances, and renal tubular function. pH may affect urinary stone formation. For example, urine pH below 6.0 may help reduce the tendency for calcium phosphate stones and pH greater than 6.0 may reduce the tendency for uric acid stone formation. Source: [facility] Year Up Current Interpretive Data was last revised on 2017 Protein, ur ql Trace Negative [facility] ([place]) Glucose, ur ql Negative Negative [facility] ([place]) Ketones, ur Negative Negative [facility] ([place]) Bilirubin, ur Negative Negative [facility] ([place]) Blood, ur Trace(A) Negative [facility] ([place]) Urobilinogen, ur <2.0 <2.0 mg/dL [facility] ([place]) Nitrite, ur Negative Negative [facility] ([place]) Leukocyte esterase, ur Negative Negative [facility] ([place]) UA reflex comment Reflex to microscopic UA will be performed. [facility] ([place]) Urine 10/19/2024 5:09 PM CDT 10/19/2024 5:13 PM CDT us Daniel Elmore MD LAB MICROBIOLOGY - GENERAL ORD ERABLES Final Result [facility] ([place]) 1 [facility] Department [place] [address] * (ABNORMAL) Urinalysis, microscopic only (10/19/2024 5:09 PM CDT) WBC, ur 0-5 0 - 5 /HPF RBC, ur 3-5(A) 0 - 2 /HPF [facility] ([place]) Epithelial cells, squamous, ur 6-10(A) 0 - 5 /HPF [facility] Bacteria, ur 2+(A) [facility] ([place]) Mucous, ur Present(A) [facility] ([place]) Culture Reflex Comment Reflex conditions for urine culture (WBC >10) not met. [facility] ([place]) Urine 10/19/2024 5:09 PM CDT 10/19/2024 5:13 PM CDT us Daniel Elmore MD LAB URINE ORDERABLES Final Res ult [facility] ([place]) 1 [facility] Department [place] [address] * POCT hCG, urine (10/19/2024 5:09 PM CDT) HCG, ur, POC Negative Negative Lot Number [id number] QC Backgroud Clear Acceptable QC Control Line Acceptable Urine 10/19/2024 5:09 PM CDT us Daniel Elmore MD POINT OF CARE TEST ORDERABLES Final Result * eGFR (10/19/2024 4:50 PM CDT) eGFR >90 >=60 mL/min/1. 73 m2 Comment: Interpretive Data Reference Interval Normal >/= 90 mL/min/1.73m2 Mildly decreased* 60 - 89 mL/min/1.73m2 Mildly to moderately decreased 45 - 59 mL/min/1.73m2 Moderately to severely decreased 30 - 44 mL/min/1.73m2 Severely decreased 15 - 29 mL/min/1.73m2 Kidney Failure < 15 mL/min/1.73m2 *Relative to young adult level Estimated glomerular filtration rate is determined by the 2020 CKD-EPI equation recommended by the National Kidney Foundation (A Unifying Approach to GFR Estimation: Recommendations of the NKF-ASK Task Force on Reassessing the Inclusion of Race in Diagnosing Kidney Disease, DEANNAN 2020). The CKD-EPI equation should not be used for patients with unstable renal function and has not been validated in children and those over 70. Current interpretive data was last reviewed 2021. Blood 10/19/2024 4:50 PM CDT 10/19/2024 4:54 PM CDT us Daniel Elmore MD LAB BLOOD ORDERABLES Final Res ult [facility] ([place]) 1 [facility] Department [place] [address] * Differential, auto (10/19/2024 4:50 PM CDT) Neutrophil abs 2.80 1.50 - 6.50 K/cumm Imm gran abs 0.02 0.00 - 0.10 K/cumm [facility] ([place]) Lymphocyte abs 1.24 0.80 - 3.30 K/cumm [facility] ([place]) Monocyte abs 0.39 0.20 - 0.80 K/cumm [facility] ([place]) Eosinophil abs 0.02 0.00 - 0.50 K/cumm [facility] ([place]) Basophil abs 0.04 0.00 - 0.10 K/cumm [facility] ([place]) Neutrophil pct 62.2 % [facility] ([place]) Comment: Interpretive Data Percent cell count reference ranges are not reported, since discordance with absolute values may lead to misinterpretation of CBC data. Current Interpretive Data was last revised on 2017. Imm gran pct 0.4 % [facility] ([place]) Comment: Interpretive Data Percent cell count reference ranges are not reported, since discordance with absolute values may lead to misinterpretation of CBC data. Current Interpretive Data was last revised on 2017. Lymphocyte pct 27.5 % [facility] ([place]) Comment: Interpretive Data Percent cell count reference ranges are not reported, since discordance with absolute values may lead to misinterpretation of CBC data. Current Interpretive Data was last revised on 2017. Monocyte pct 8.6 % [facility] ([place]) Comment: Interpretive Data Percent cell count reference ranges are not reported, since discordance with absolute values may lead to misinterpretation of CBC data. Current Interpretive Data was last revised on 2017. Eosinophil pct 0.4 % [facility] ([place]) Comment: Interpretive Data Percent cell count reference ranges are not reported, since discordance with absolute values may lead to misinterpretation of CBC data. Current Interpretive Data was last revised on 2017. Basophil pct 0.9 % [facility] ([place]) Comment: Interpretive Data Percent cell count reference ranges are not reported, since discordance with absolute values may lead to misinterpretation of CBC data. Current Interpretive Data was last revised on 2017. Blood 10/19/2024 4:50 PM CDT 10/19/2024 4:54 PM CDT us Daniel Elmore MD LAB BLOOD ORDERABLES Final Res ult [facility] ([place]) 1 [facility] Department [place] [address] * (ABNORMAL) CBC with auto differential (10/19/2024 4:50 PM CDT) WBC 4.51 3.80 - 9.90 K/cumm Hgb 14.7 11.9 - 15.5 g/dL [facility] ([place]) Hct 44.9 35.6 - 45.5 % [facility] ([place]) Plt 287 150 - 400 K/cumm [facility] ([place]) MPV 10.6 9.1 - 12.3 fL [facility] RBC 5.23(H) 3.90 - 5.20 M/cumm [facility] ([place]) MCV 85.9 81.3 - 96.4 fL [facility] ([place]) MCH 28.1 27.1 - 33.3 pg [facility] ([place]) MCHC 32.7 32.3 - 35.7 g/dL [facility] ([place]) RDW CV 12.4 11.1 - 14.9 % [facility] ([place]) RDW SD 38.5 35.7 - 48.1 fL [facility] ([place]) NRBC abs 0.00 0.00 - 0.01 K/cumm [facility] ([place]) Blood Venous blood specimen / Unknown 10/19/2024 4:50 PM CDT 10/19/2024 4:54 PM CDT Daniel Elmore MD LAB BLOOD ORDERABLES Final Res ult [facility] ([place]) 1 [facility] [place] [address] * Lipase (10/19/2024 4:50 PM CDT) Pathologist [facility] Lipase 32 10 - 99 Units/L Blood Venous blood specimen / Unknown 10/19/2024 4:50 PM CDT 10/19/2024 4:54 PM CDT Daniel Elmore MD LAB BLOOD ORDERABLES Final Res ult Performing Organization Address City/[facility] Co de Phone Number [facility] ([place]) 1 [facility] [place] [address] * Comprehensive metabolic panel (10/19/2024 4:50 PM CDT) Sodium 135 135 - 145 mmol/L Potassium, pl 4.8 3.3 - 4.9 mmol/L [facility] ([place]) Chloride 97 97 - 110 mmol/L [facility] ([place] CO2 24 22 - 32 mmol/L [facility]) Anion gap 13 2 - 15 mmol/L [facility] ([place]) BUN 15 6 - 25 mg/dL [facility] ([place]) Creatinine 0.74 0.60 - 1.10 mg/dL [facility] Glucose 96 70 - 199 mg/dL [facility] ([place]) Comment: Interpretive Data Fasting glucose >/= 126 mg/dl is diagnostic for diabetes. Fasting is defined as no caloric intake for at least 8 hours. Fasting glucose between 100 mg/dl to 125 mg/dl is diagnostic of prediabetes. In a patient with classic symptoms of hyperglycemia or hyperglycemic crisis, a random glucose >/= 200 mg/dl is diagnostic for diabetes. In the absence of unequivocal hyperglycemia, results should be confirmed by repeat testing. The classification and Diagnosis of Diabetes Diabetes Care 202; 46: S19-S40. Current interpretive data was last revised 2022. Calcium 9.7 8.5 - 10.3 mg/dL [facility] ([place]) Bilirubin, total 0.5 0.1 - 1.2 mg/dL [facility] ([place]) Protein, pl 7.6 6.5 - 8.5 g/dL [facility] ([place]) Albumin 4.2 3.5 - 5.0 g/dL [facility] ([place]) Alk phos 106 40 - 130 Units/L [facility] ([place]) ALT 29 7 - 45 Units/L [facility] ([place]) AST 27 10 - 45 Units/L [facility] ([place]) Blood 10/19/2024 4:50 PM CDT 10/19/2024 4:54 PM CDT us Daniel Elmore MD LAB BLOOD ORDERABLES Final Res ult [facility] ([place]) 1 [facility] [place] [address] from Last 3 Months Insurance [facility] [facility] [place] [facility] MEDICAID Care Teams Piper Installer Relationship Specialty Start Date End Date Sherrell Myles MD [address] [facility] [address] [place] [address] PCP - General Family Medicine 10/19/24
[2025-01-02 23:22] VITALS: BP 137/86; PULSE 78; RESP 18; TEMP 36.9; O2SAT 100
[2025-01-02 23:25] VITALS: BP 137/86; PULSE 78; RESP 16; O2SAT 100
[2025-01-02] MEDS: SODIUM CHLORIDE 0.9% IV 1,000 ML 999 ML IV CONT (23:40)
[2025-01-02] MEDS: ONDANSETRON INJ 4 MG/2 ML VIAL IV PUSH (23:41)
[2025-01-02 23:48] LABS: Hematocrit 37.2 % (37.0-47.0); Hemoglobin 12.1 g/dL (12.0-15.0); Immature Granulocyte Percent A 0.6 % (0-0.5); Lymphocytes Absolute Auto 2.19 K/mm3 (0.9-3.2); Mean Corpuscular HGB Conc 32.5 g/dl (32-36); Mean Corpuscular Hemoglobin 28.1 pg (26-34); Mean Corpuscular Volume 86.3 fl (80-100); Nucleated Red Blood Cells Absolute Auto 0.000 K/mm3 (0.0-0.012); Nucleated Red Blood Cells Perc 0.0 % (0.0-0.2); Platelet Count Result 320 k/mm3 (150-375); Red Blood Count 4.31 M/mm3 (4.2-5.4); White Blood Count 11.9 K/mm3 (4.5-10.0)
[2025-01-02 23:55] LABS: SPREG INTERNAL CONTROL Positive; Serum Qual hCG Positive
[2025-01-03 00:11] LABS: Alanine Aminotransferase 17 U/L (6-35); Albumin Level 4.2 g/dL (3.5-5.1); Alkaline Phosphatase 73 U/L (38-126); Anion Gap 10 mmol/L (4-12); Aspartate Amino Transferase 25 U/L (14-36); Bilirubin,Total 0.7 mg/dL (0.2-1.3); Blood Urea Nitrogen 10 mg/dL (7-17); Calcium 9.7 mg/dL (8.4-10.2); Carbon Dioxide 22 mmol/L (22-30); Chloride 102 mmol/L (98-107); Estimated CRCL calculation 141 ml/min; Estimated Glomerular Filt Rate > 60; Glucose 95 mg/dL (65-110); Lipase 78 U/L (23-300); Magnesium 1.7 mg/dL (1.6-2.3); Potassium 4.2 mmol/L (3.4-5.0); Sodium 134 mmol/L (137-145); Total Protein 6.9 g/dL (6.3-8.2)
--- NOTE | 2025-01-03 00:46 | ED.GENADULT ---
HPI - General Adult General Chief complaint: Nausea/Vomiting/Diarrhea Stated complaint: vomiting Time Seen by Provider: 01/02/25 23:02 History of Present Illness HPI narrative: Patient is a 39-year-old female who presents emergency department this evening complaining of nausea and vomiting. States that she is approximately 8 weeks and has been having the symptoms for the past 3 weeks. Denies any vaginal bleeding or spotting, any lower abdominal cramping. Patient states that she does not have any nausea pills at home. Otherwise denies any additional symptoms or concerns. Related Data Allergies Allergy/AdvReac Type Severity Reaction Status Date / Time No Known Allergies Allergy Verified 01/02/25 23:27 Review of Systems Review of Systems: All systems are reviewed and are negative unless stated otherwise in the HPI. [facility] Past Medical History Medical History Asthma Surgical History Surgical History [place] teeth extracted Social History Social History Smoking status: Never smoker Alcohol intake: never Substance use: never Lack of Transportation: No Lack of Food: Never True Current Housing: I Have Housing Concerned About Future Housing: No Difficulty Paying Gas/Electric Bills: No Difficulty Paying for Meds: No Currently Unemployed: No Education: High School Diploma/GED Difficulty w/ Childcare or Family Care: No Living arrangements: with family Occupation/Education: student Gender identity (if verbalized by the patient): Female Sexual Orientation (if Verbalized by the Patient): Straight or Heterosexual Spiritual care concerns: No Exam Narrative: General: Alert, awake, afebrile, in no acute distress. HEENT: PERRL, no rhinorrhea, no post nasal drip, oropharynx clear. Neck: Trachea midline, no JVD, no lymphadenopathy. Cardiovascular: Regular rate and rhythm, no murmurs, rubs or gallops, no peripheral edema. Respiratory: Clear to auscultation bilaterally, no tachypnea, no wheezing, no rhonchi, no rubs, no respiratory distress. Abdomen: Soft, nontender, nondistended, no rebound, no guarding, no peritoneal signs. Musculoskeletal: No joint swelling or deformity, normal muscle tone. Skin: No rashes or petechia, no signs of infection. Psychiatric: Alert and oriented, normal behavior and judgment for situation. Neurological: Alert and oriented to person, place, and time. Follows all commands. No focal deficits, speech is clear and fluent. Course Vital Signs Vital signs: Vital Signs Temperature 98.5 F 01/02/25 23:22 Pulse Rate 78 01/02/25 23:22 Respiratory Rate 18 01/02/25 23:22 Blood Pressure 137/86 01/02/25 23:22 Pulse Oximetry 100 01/02/25 23:22 Oxygen Delivery Room Air 01/02/25 23:22 Temperature 98.5 F 01/02/25 23:22 Pulse Rate 78 01/02/25 23:25 Respiratory Rate 16 01/02/25 23:25 Blood Pressure 137/86 01/02/25 23:25 Pulse Oximetry 100 01/02/25 23:25 Oxygen Delivery Room Air 01/02/25 23:22 Medical Decision Making MDM Narrative Medical decision making narrative: The patient was evaluated by myself in the emergency department. History is obtained from patient who is an independent historian and physical exam was performed. External medical records were reviewed at this time. IV was established and pertinent tests were ordered. Patient was administered 2 L IV fluid bolus with normal saline and 4 mg of IV Zofran. Laboratory results obtained revealing no acute process. Urinalysis unremarkable. Differential diagnosis considerations include hyperemesis gravidarum, dehydration, electrolyte derangements, acute kidney injury. Comorbidities impacting this visit include current first-trimester . I have evaluated and discussed social determinants of health with the patient that could potentially impact subsequent diagnosis and treatment plans. On repeat assessment of the patient, reevaluation revealed that the patient is doing well and is in no acute distress. Patient symptoms have improved since she arrived to our emergency department. Repeat vital signs were all reviewed and noted to be stable. Differential diagnosis and treatment plan were discussed with the patient at bedside. Patient agrees with discussion and after shared medical decision making agrees with discharge. All questions were answered to the patient's satisfaction. Patient will follow up with OBGYN in 3-5 days. A script for Zofran was sent to patient's pharmacy to take as needed for nausea/vomiting. Patient was provided with strict return precautions and instructed to return to the emergency department if any new or worsening symptoms develop. The patient was discharged in stable condition. Vital Signs Vital Signs: Vital Signs Temperature 98.5 F 01/02/25 23:22 Pulse Rate 78 01/02/25 23:22 Respiratory Rate 18 01/02/25 23:22 Blood Pressure 137/86 01/02/25 23:22 Pulse Oximetry 100 01/02/25 23:22 Oxygen Delivery Room Air 01/02/25 23:22 Temperature 98.5 F 01/02/25 23:22 Pulse Rate 78 01/02/25 23:25 Respiratory Rate 16 01/02/25 23:25 Blood Pressure 137/86 01/02/25 23:25 Pulse Oximetry 100 01/02/25 23:25 Oxygen Delivery Room Air 01/02/25 23:22 Lab Data 01/02/25 23:38 01/02/25 23:38 Labs: Lab Results 01/02/25 01/02/25 Range/Units 23:38 23:49 WBC 11.9 H (4.5-10.0) K/mm3 RBC 4.31 (4.2-5.4) M/mm3 Hgb 12.1 (12.0-15.0) g/dL Hct 37.2 (37.0-47.0) % MCV 86.3 (80-100) fl MCH 28.1 (26-34) pg MCHC 32.5 (32-36) g/dl RDW 12.5 (11.5-14.5) % Plt Count 320 (150-375) k/mm3 MPV 10.9 H (7.4-10.4) fl Immature Gran % (Auto) 0.6 H (0-0.5) % Neut % (Auto) 75.4 H (45.5-73.1) % Lymph % (Auto) 18.4 (18.3-44.2) % [place] % (Auto) 5.0 (2.6-8.5) % Eos % (Auto) 0.3 (0-4.4) % Baso % (Auto) 0.3 (0.2-1.2) % Lymph # (Auto) 2.19 (0.9-3.2) K/mm3 [place] # (Auto) 0.6 (0.1-0.6) K/mm3 Eos # (Auto) 0.0 (0-0.3) K/mm3 Baso # (Auto) 0.0 (0.0-0.1) K/mm3 Abs Immat Gran (auto) 0.07 H (0.00-0.031) K/mm3 Absolute Neuts (auto) 9.0 H (1.3-6.7) K/mm3 Absolute Nucleated RBC 0.000 (0.0-0.012) K/mm3 Nucleated RBC % 0.0 (0.0-0.2) % Sodium 134 L (137-145) mmol/L Potassium 4.2 (3.4-5.0) mmol/L Chloride 102 (98-107) mmol/L Carbon Dioxide 22 (22-30) mmol/L Anion Gap 10 (4-12) mmol/L BUN 10 D (7-17) mg/dL Creatinine 0.52 L (0.7-1.0) mg/dL Estim Creat Clear Calc 141 ml/min Estimated GFR > 60 (59 - ) Glucose 95 (65-110) mg/dL Calcium 9.7 (8.4-10.2) mg/dL Magnesium 1.7 (1.6-2.3) mg/dL Total Bilirubin 0.7 (0.2-1.3) mg/dL AST 25 (14-36) U/L ALT 17 (6-35) U/L Alkaline Phosphatase 73 (38-126) U/L Total Protein 6.9 (6.3-8.2) g/dL Albumin 4.2 (3.5-5.1) g/dL Lipase 78 (23-300) U/L Serum HCG, Qual Positive A Urine Color Yellow (Yellow) Urine Appearance Cloudy H (Clear) Urine pH 6.0 (5.0-9.0) Ur Specific [place] 1.027 (1.001-1.035) Urine Protein Trace (Negative) mg/dL Urine Glucose (UA) Negative (Negative) mg/dL Urine Ketones 1+ H (Negative) mg/dL Ur Blood (Man) Negative (Negative) Urine Nitrate Negative (Negative) Urine Bilirubin Negative (Negative) Urine Urobilinogen 1.0 (<2.0) mg/dL Leukocyte Esterase Rfl Negative (Negative) [place]/UL Urine RBC 3-5 H (0-2) /hpf Urine WBC 0-5 (0-3) /hpf Ur Squamous Epith Cells None seen (Few) /hpf Urine Casts 0-2 Discharge Plan Discharge Clinical Impression: Hyperemesis gravidarum Patient Disposition: Home Condition: Improved Instructions: Antibiotic Form, Hyperemesis Gravidarum (ED) Additional Instructions: Please follow-up with your OBGYN within the next 3-5 days. Return emergency department if any new or worsening symptoms develop. Use the prescribed Zofran as needed for nausea/vomiting Patient Language: [place] Prescriptions: New ondansetron 4 mg tablet,disintegrating 4 mg PO Q8H PRN (Reason: nausea and vomiting) Qty: 10 0RF Follow-up/Referrals: UNKNOWN,DOCTOR [Primary Care Provider] - 3 Days Time of Disposition: 00:47
[2025-01-03 00:55] LABS: Add Urine Microscopic? YES; Appearance Urine Cloudy (Clear); Glucose Urine UA Negative (Negative); Leukocyte Esterase Ur Negative LEU/UL (Negative); Nitrate Urine Negative (Negative); Specific Grav Ur 1.027 (1.001-1.035)
[2025-01-03 00:58] LABS: Non Pathogenic Casts 0-2
[2025-01-03] MEDS: SODIUM CHLORIDE 0.9% IV 1,000 ML 999 ML IV CONT (01:05)
[2025-01-03 01:15] VITALS: PULSE 81; RESP 14; O2SAT 100
[2025-01-03 02:02] VITALS: BP 124/56; PULSE 81; RESP 14; O2SAT 100
== END 2025-01-03 02:00 | disposition home or self-care (01) ==
PROVIDERS: Emergency Provider Emergency Medicine
DX: O21.0 Mild hyperemesis gravidarum (principal); O99.511 Diseases of the respiratory system complicating pregnancy, first trimester; J45.909 Unspecified asthma, uncomplicated; Z3A.08 8 weeks gestation of pregnancy
CPT/HCPCS: 36415; 80053; 81001; 83690; 83735; 84703; 85025; 96361; 96374; 99284; J2405; J7030